=== PATIENT | male | born 1980 | race Caucasian/White ===

== ENCOUNTER 2018-10-13 22:28 | Emergency (ER) | payer OTHER ==
[2018-10-13 22:51] VITALS: RESP 18
--- NOTE | 2018-10-13 23:54 | ED ---
Lower Extremity Injury HPI - General Chief Complaint: Extremity Injury, Lower Stated Complaint: Knee injury Time Seen by Provider: 10/13/18 23:22 Source: patient Mode of arrival: ambulatory Limitations: no limitations - History of Present Illness Initial Comments: Abdomen is a 37-year-old male who presents the ED today for evaluation of left knee swelling. 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 He reports approximately 2 weeks ago he struck his knee on 8 toe hitch of a vehicle, he does state he had some redness and tenderness for a few days without improvement however over the past couple of days he had noticed swelling of his left knee. He describes it as feeling as though the area in front of his knee Is squishy. He denies any significant pain, redness or fevers. Patient states that he contact his primary care physician and was to be evaluated on Wednesday however he became concerned about the degree of swelling psychiatric the ER for evaluation. - Related Data Home Medications Medication Instructions Recorded Confirmed No Known Home Medications 10/13/18 10/13/18 Allergies Allergy/AdvReac Type Severity Reaction Status Date / Time No Known Allergies Allergy Verified 10/13/18 23:37 Review of Systems ROS Statement: Those systems with pertinent positive or pertinent negative responses have been documented in the HPI. ROS Other: All systems not noted in ROS Statement are negative. Past Medical History Past Medical History: No Reported History History of Any Multi-Drug Resistant Organisms: None Reported Past Surgical History: No Surgical Hx Reported Past Psychological History: No Psychological Hx Reported Smoking Status: Current some day smoker Past Alcohol Use History: Occasional Past Drug Use History: Marijuana General Exam - General Exam Comments Initial Comments: Physical Exam GENERAL: Patient is well-developed and well-nourished. Patient is nontoxic and well- hydrated and is in no distress. HENT: Normocephalic, Atraumatic. EYES: PERRL, EOMI PULMONARY: Mild expiratory wheeze CARDIOVASCULAR: There is a regular rate and rhythm without any murmurs gallops or rubs. ABDOMEN: Soft and nontender with normal bowel sounds. SKIN: Skin is clear with no lesions or rashes and otherwise unremarkable. : Deferred NEUROLOGIC: Patient is alert and oriented x3. Moving all extremities spontaneously MUSCULOSKELETAL: Normal extremities with adequate strength and full range of motion. No calf tenderness. Left knee with no erythema or tenderness, full range of motion noted, there is noted to be soft boggy edema anterior to the patellar tendon consistent with prepatellar bursitis PSYCHIATRIC: Normal psychiatric evaluation. Limitations: no limitations Limitations: no limitations Course Vital Signs 10/13/18 10/14/18 22:48 01:30 Temperature 98.5 F 98.1 F Pulse Rate 74 60 Respiratory 18 18 Rate Blood Pressure 130/69 110/70 O2 Sat by Pulse 96 95 Oximetry Medical Decision Making - Medical Decision Making Patient was seen and evaluated history was obtained from the patient, Given the recent trauma and x-ray was ordered X-ray was consistent with prepatellar bursitis, I discussed this with the patient, however he is very uncomfortable with this large fluid collection and is requesting a be drained. Risks and benefits of drainage including the risk of infection and the risk of recurrence were discussed patient he still agreeable to drainage. Prepatellar bursitis aspiration was performed by mid-level provider Cachorro SOLIS. Patient tolerated the procedure well I was present for supervision of the procedure neck sign patient was discharged home in stable condition with referral to orthopedics for reevaluation. Disposition Clinical Impression: Prepatellar bursitis Disposition: HOME SELF-CARE Instructions: Knee Bursitis (ED) Is patient prescribed a controlled substance at d/c from ED?: No Referrals: Briana Snyder MD [Primary Care Provider] - 1-2 days Hernandez Rhodes MD [Medical Doctor] - 1-2 days
--- NOTE | 2018-10-14 00:45 | XR ---
EXAMINATION TYPE: XR knee limited LT DATE OF EXAM: 10/14/2018 COMPARISON: NONE HISTORY: Left knee pain TECHNIQUE: 2 views. FINDINGS: I see no fracture nor dislocation. Joint spaces are normal. There is no sign of a joint effusion. Th ere is significant anterior soft tissue swelling anterior to the patella. IMPRESSION: No fracture seen. Anterior soft tissue swelling consistent with patella bursitis.
[2018-10-14 01:31] VITALS: BP 110/70; PULSE 60; TEMP 98.1
--- NOTE | 2018-10-14 01:33 | ED ---
Disposition Clinical Impression: Prepatellar bursitis Disposition: HOME SELF-CARE Instructions: Knee Bursitis (ED) Is patient prescribed a controlled substance at d/c from ED?: No Referrals: Briana Snyder MD [Primary Care Provider] - 1-2 days Hernandez Rhodes MD [Medical Doctor] - 1-2 days Procedures - Bursa Procedures Consent Obtained: verbal consent Indications: aspiration/injection (aspiration) Side of Body: left Site of Procedure: prepatellar bursa Antisepsis Used: Chlorhexidine Fluid Type: clear (10 ml) Patient Tolerated Procedure: well Complications: none
== END 2018-10-14 01:47 | disposition home or self-care (01) ==
LOC: EC 22:28
DX: M70.42 Prepatellar bursitis, left knee (principal); F17.200 Nicotine dependence, unspecified, uncomplicated
CPT/HCPCS: 20610; 99283

== ENCOUNTER → 2019-02-22 | Outpatient (CLI) | payer OTHER ==
--- NOTE | 2019-02-22 15:46 | CT ---
EXAMINATION TYPE: CT abdomen w con DATE OF EXAM: 02/22/2019 COMPARISON: None. HISTORY: Right sided mid to lower abdominal pain intermittent for years per patient. CT DLP: 281.3 mGycm, Automated Exposure Control for Dose Reduction was Utilized. CONTRAST: CT scan of the abdomen is performed with oral and with IV Contrast, patient injected with 100 mL of I sovue 300. FINDINGS: LUNG BASES: No significant abnormality is appreciated. LIVER/GB: Hepatomegaly is present. Liver is diffusely low dense consistent with fatty infiltration PANCREAS: No significant abnormality is seen. SPLEEN: No significant abnormality is seen. ADRENALS: No significant abnormality is seen. KIDNEYS: Subcentimeter low dense lesion posteriorly mid pole level left kidney is too small to furthe r characterize but presumed benign. There is staghorn type calculus measuring 11 mm long axis lower p ole level right kidney axial image 39 and coronal image 29 which is visualized on localizer image. BOWEL: Oral contrast only reaches distal jejunal loops in the left abdomen. There is no suspicious sm all or large bowel dilatation. Patient has there is little intra-abdominal fat making evaluation slig htly suboptimal. Appendix felt within normal limits from medial aspect of cecum. LYMPH NODES: No greater than 1cm abdominal lymph nodes are appreciated. OSSEOUS STRUCTURES: No significant abnormality is seen. OTHER: No significant additional abnormality is seen. IMPRESSION: Nonobstructing staghorn-type 11 mm calculus lower pole right kidney. Hepatomegaly with fa tty infiltration noted otherwise fairly unremarkable study.
== END | disposition home or self-care (01) ==
LOC: RADCTMAIN 14:26
PROVIDERS: ATTEND Internal Medicine
DX: N20.0 Calculus of kidney (principal)
CPT/HCPCS: 74160; Q9967

== ENCOUNTER → 2019-09-13 | Day surgery (SDC) | payer OTHER ==
[2019-09-11 15:06] VITALS: BMI 21.6
[~2019-09-13] MED LIST: LACTATED RINGERS 1,000 ML IV SCH; LIDOCAINE 1% 20 ML VIAL (10MG/ML) FOR IV START INTRADERMA PRN; LIDOCAINE 1% INJ 10MG/ML (20 ML MDV) ONE; PROPOFOL 10 MG/ML 20 ML VIAL IV ONE
[2019-09-13 11:49] VITALS: TEMP 97.9
--- NOTE | 2019-09-13 12:50 | P.PCN ---
Date of Procedure: 09/13/19 Procedure(s) Performed: Brief history: Patient is a pleasant 38-year-old white male scheduled for an elective upper endoscopy as well as colonoscopy as a part of evaluation of right-sided abdominal pain for the last several months duration. He denies any nausea vomiting, change in bowel habits. Pain happens 2-3 times a week and can last for a couple of days. Has no aggravating or relieving factors. He did have CT of abdomen and pelvis done that was unremarkable other than a small left sided kidney stone. Procedure performed: Esophagogastroduodenoscopy with biopsy Colonoscopy with biopsy Preoperative diagnosis: Right-sided abdominal pain of 6 months duration. [place] [facility] [place]: After informed consent was obtained from the patient was brought into the endoscopy unit and IV sedation was administered by anesthesia under continuous monitoring. Initially upper endoscopy was done. The Olympus GF 160 video endoscope was inserted inserted into the mouth and esophagus intubated without any difficulty and was gradually advanced into the stomach and duodenum and carefully examined. The bulb and second part of the duodenum appeared normal. The scope was then withdrawn into the stomach adequately insufflated with air and upon careful examination the antrum and body, cardia and fundus appeared normal. The scope was then withdrawn into the esophagus. The GE junction was located at 40 cm to the incisors. It appeared regular with no erythema erosions or ulcerations. Rest of the esophagus appeared normal. Patient tolerated the procedure well. At this time the patient continued to remain sedation. Initial digital rectal examination was normal. Olympus CF 160 video colonoscope was then inserted into the rectum and gradually advanced to the cecum without any difficulty. Careful examination was performed as the scope was gradually being withdrawn. The prep was excellent. Terminal ileum was intubated and 20 cm visualized appeared normal. Biopsies were also done from this area. The cecum, ascending colon, transverse colon, descending colon, sigmoid colon and rectum appeared normal. Retroflexion was performed in the rectum and no lesions were noted. Patient tolerated the procedure well. Impression: 1. Upper endoscopy revealed mild diffuse gastritis but no evidence of esophagitis or peptic ulcer disease 2. Colonoscopy was essentially within normal limits with no evidence of colitis or colorectal neoplasia. Normal-appearing terminal ileum. Recommendations: Findings of this examination were discussed with the patient as well as his family. He was advised to follow with the biopsy results. He'll be seen in office in 2-3 weeks.
[2019-09-13 13:29] VITALS: RESP 18
[2019-09-13 13:41] VITALS: BP 150/86; PULSE 56
== END ==
LOC: ORWHC2ENDO 11:08
PROVIDERS: ATTEND Internal Medicine Gastroenterology
DX: K29.70 Gastritis, unspecified, without bleeding (principal); F17.210 Nicotine dependence, cigarettes, uncomplicated
CPT/HCPCS: 88305; 45380; 43239; J2001; J2704

== ENCOUNTER 2020-12-19 13:39 | Emergency (ER) | payer OTHER ==
[2020-12-19 13:45] VITALS: RESP 18
--- NOTE | 2020-12-19 14:10 | ED ---
Abdominal Pain HPI - General Chief Complaint: Abdominal Pain Stated Complaint: Abd pain/vomiting Source: patient Mode of arrival: ambulatory Limitations: no limitations - History of Present Illness Initial Comments: 40-year-old male presented emergency Department with a chief complaint abdominal pain. States the abdominal pain is located in his right lower quadrant and has been well for past 5-6 years. Patient reports seeing a GI specialist and had an upper and lower GI scope performed with no significant findings. Patient also sees his primary care physician with no definitive cause for his pain. Patient reports that his been gradually getting worse and the pain seems to be periodically getting better but then follows by episodes of sharp pain which causes him to be nauseous and vomit. Patient reports she has been vomiting at least once over the past 1-2 weeks. Denies any constipation but does report diarrhea for the past several months. States the pain is not postprandial. Denies any hematuria or melena. he does report occasional hematochezia but states this has been ongoing for quite some time. Denies dysuria, increased urgency or frequency. Denies any obstructive urinary symptoms. Denies any penile discharge, testicular swelling or erythema. - Related Data Home Medications Medication Instructions Recorded Confirmed Omeprazole Magnesium [PriLOSEC OTC] 20 mg PO DAILY PRN 12/19/20 12/19/20 Allergies Allergy/AdvReac Type Severity Reaction Status Date / Time No Known Allergies Allergy Verified 12/19/20 14:30 Review of Systems ROS Statement: Those systems with pertinent positive or pertinent negative responses have been documented in the HPI. ROS Other: All systems not noted in ROS Statement are negative. Past Medical History Past Medical History: GERD/Reflux Additional Past Medical History / Comment(s): rt abdominal pain History of Any Multi-Drug Resistant Organisms: None Reported Past Surgical History: No Surgical Hx Reported Past Anesthesia/Blood Transfusion Reactions: No Reported Reaction Past Psychological History: No Psychological Hx Reported Smoking Status: Current every day smoker Past Alcohol Use History: Daily Past Drug Use History: Marijuana - Past Family History Mother Family Medical History: No Reported History General Exam Limitations: no limitations General appearance: alert, in no apparent distress Head exam: Present: atraumatic, normocephalic, normal inspection Eye exam: Present: normal appearance, PERRL, EOMI Pupils: Present: normal accommodation ENT exam: Present: normal exam, normal oropharynx, mucous membranes moist, TM's normal bilaterally, normal external ear exam Neck exam: Present: normal inspection, full ROM. Absent: tenderness Respiratory exam: Present: normal lung sounds bilaterally. Absent: respiratory distress Cardiovascular Exam: Present: regular rate, normal rhythm, normal heart sounds GI/Abdominal exam: Present: soft, tenderness (mild right lower quadrant tenderness), normal bowel sounds. Absent: distended, guarding, rebound, rigid Extremities exam: Present: normal inspection, full ROM, normal capillary refill. Absent: tenderness Back exam: Present: normal inspection, full ROM. Absent: tenderness, CVA tenderness (R), CVA tenderness (L) Neurological exam: Present: alert, oriented X3, normal gait Psychiatric exam: Present: normal affect, normal mood Skin exam: Present: warm, dry, intact, normal color Course Vital Signs 12/19/20 12/19/20 13:40 16:11 Temperature 97.9 F 98.0 F Pulse Rate 62 68 Respiratory 18 18 Rate Blood Pressure 148/91 133/91 O2 Sat by Pulse 98 98 Oximetry Medical Decision Making - Medical Decision Making 40-year-old male presents to emergency Department with a chief complaint of abdominal pain. On physical examination, patient has mild right lower quadrant tenderness. No CVA tenderness. He did report of intermittent hematochezia. CBC reveals no signs of anemia. CMP is unremarkable. He does have a lactic acid of 2.6. UA shows 17 red blood cells and small amounts of blood. CT of abdomen and pelvis with contrast revealsuncomplicate mild arthritis localized to the terminal ileum. This could represent why the pain is located in the right lower quadrant. This could also explain why the patient continues to have diarrhea. Considering this has been a chronic issue, there is a possibility for an autoimmune condition like ulcerative colitis. the CT also revealed nonobstructive renal calculi.Advised the patient to follow-up with a GI specialist. Patient already has Zofran at home. We'll discharge him with a Tylenol 3 starter pack advised not to drive or operate heavy machinery when taking medication. Strict return parameters were thoroughly discussed the patient was understanding and agreeable. Case discussed with physician. - Lab Data Result diagrams: 12/19/20 14:31 12/19/20 14:31 Lab Results 12/19/20 12/19/20 12/19/20 Range/Units 14:31 14:31 14:31 WBC 4.7 (3.8-10.6) k/uL RBC 4.61 (4.30-5.90) m/uL Hgb 15.5 (13.0-17.5) gm/dL Hct 45.8 (39.0-53.0) % MCV 99.3 (80.0-100.0) fL MCH 33.6 (25.0-35.0) pg MCHC 33.8 (31.0-37.0) g/dL RDW 12.2 (11.5-15.5) % Plt Count 174 (150-450) k/uL MPV 6.8 Neutrophils % 60 % Lymphocytes % 30 % Monocytes % 7 % Eosinophils % 2 % Basophils % 1 % Neutrophils # 2.8 (1.3-7.7) k/uL Lymphocytes # 1.4 (1.0-4.8) k/uL Monocytes # 0.3 (0-1.0) k/uL Eosinophils # 0.1 (0-0.7) k/uL Basophils # 0.1 (0-0.2) k/uL Sodium 143 (137-145) mmol/L Potassium 4.3 (3.5-5.1) mmol/L Chloride 105 (98-107) mmol/L Carbon Dioxide 26 (22-30) mmol/L Anion Gap 12 mmol/L BUN 12 (9-20) mg/dL Creatinine 0.78 (0.66-1.25) mg/dL Est GFR (CKD-EPI)AfAm >90 (>60 ml/min/1.73 sqM) Est GFR (CKD-EPI)NonAf >90 (>60 ml/min/1.73 sqM) Glucose 80 (74-99) mg/dL Lactic Ac Sepsis Rflx Plasma Lactic Acid Iban 2.6 H* (0.7-2.0) mmol/L Calcium 9.0 (8.4-10.2) mg/dL Total Bilirubin 1.0 (0.2-1.3) mg/dL AST 113 H (17-59) U/L ALT 41 (4-49) U/L Alkaline Phosphatase 97 (38-126) U/L Total Protein 8.3 H (6.3-8.2) g/dL Albumin 4.3 (3.5-5.0) g/dL Lipase 160 (23-300) U/L Urine Color Urine Appearance (Clear) Urine pH (5.0-8.0) Ur Specific [place] (1.001-1.035) Urine Protein (Negative) Urine Glucose (UA) (Negative) Urine Ketones (Negative) Urine Blood (Negative) Urine Nitrite (Negative) Urine Bilirubin (Negative) Urine Urobilinogen (<2.0) mg/dL Ur Leukocyte Esterase (Negative) Urine RBC (0-5) /hpf Urine WBC (0-5) /hpf Ur Squamous Epith Cells (0-4) /hpf Urine Mucus (None) /hpf 12/19/20 12/19/20 Range/Units 15:02 15:15 WBC (3.8-10.6) k/uL RBC (4.30-5.90) m/uL Hgb (13.0-17.5) gm/dL Hct (39.0-53.0) % MCV (80.0-100.0) fL MCH (25.0-35.0) pg MCHC (31.0-37.0) g/dL RDW (11.5-15.5) % Plt Count (150-450) k/uL MPV Neutrophils % % Lymphocytes % % Monocytes % % Eosinophils % % Basophils % % Neutrophils # (1.3-7.7) k/uL Lymphocytes # (1.0-4.8) k/uL Monocytes # (0-1.0) k/uL Eosinophils # (0-0.7) k/uL Basophils # (0-0.2) k/uL Sodium (137-145) mmol/L Potassium (3.5-5.1) mmol/L Chloride (98-107) mmol/L Carbon Dioxide (22-30) mmol/L Anion Gap mmol/L BUN (9-20) mg/dL Creatinine (0.66-1.25) mg/dL Est GFR (CKD-EPI)AfAm (>60 ml/min/1.73 sqM) Est GFR (CKD-EPI)NonAf (>60 ml/min/1.73 sqM) Glucose (74-99) mg/dL Lactic Ac Sepsis Rflx Y Plasma Lactic Acid Iban (0.7-2.0) mmol/L Calcium (8.4-10.2) mg/dL Total Bilirubin (0.2-1.3) mg/dL AST (17-59) U/L ALT (4-49) U/L Alkaline Phosphatase (38-126) U/L Total Protein (6.3-8.2) g/dL Albumin (3.5-5.0) g/dL Lipase (23-300) U/L Urine Color Yellow Urine Appearance Clear (Clear) Urine pH 6.0 (5.0-8.0) Ur Specific [place] 1.023 (1.001-1.035) Urine Protein Trace H (Negative) Urine Glucose (UA) Negative (Negative) Urine Ketones Negative (Negative) Urine Blood Small H (Negative) Urine Nitrite Negative (Negative) Urine Bilirubin Negative (Negative) Urine Urobilinogen <2.0 (<2.0) mg/dL Ur Leukocyte Esterase Negative (Negative) Urine RBC 17 H (0-5) /hpf Urine WBC 2 (0-5) /hpf Ur Squamous Epith Cells <1 (0-4) /hpf Urine Mucus Few H (None) /hpf - EKG Data EKG Comments: sinus rhythm . No STelevation or depression. Peak T waves are also noted on his old EKG 12/04/19 Ventricular rate 70, ID 120, QRS 86, QTC 412. Disposition Clinical Impression: Abdominal pain, Enteritis, Diarrhea Disposition: HOME SELF-CARE Condition: Stable Instructions (If sedation given, give patient instructions): Enteritis (ED) Additional Instructions: Follow-up with a GI specialist. Return to emergency department if symptoms worsen. Is patient prescribed a controlled substance at d/c from ED?: No Referrals: Briana Snyder MD [Primary Care Provider] - 1-2 days Time of Disposition: 15:48
[2020-12-19] MEDS ORDERED: KETOROLAC 15 MG/ML 1 ML VIAL IVP STA (14:23)
[2020-12-19] MEDS ORDERED: SODIUM CHLORIDE 0.9% 1,000 ML IV STA (14:23)
[2020-12-19] MEDS ORDERED: FAMOTIDINE 20 MG/2 ML VIAL IV STA (14:23)
[2020-12-19 14:51] LABS: Basophils # (A) 0.1 k/uL (0-0.2); Basophils % (A) 1 %; Eosinophils # (A) 0.1 k/uL (0-0.7); Eosinophils % (A) 2 %; HCT 45.8 % (39.0-53.0); HGB 15.5 gm/dL (13.0-17.5); Lymphocytes # (A) 1.4 k/uL (1.0-4.8); Lymphocytes % (A) 30 %; MCH 33.6 pg (25.0-35.0); MCHC 33.8 g/dL (31.0-37.0); MCV 99.3 fL (80.0-100.0); Mean Platelet Volume 6.8; Monocytes # (A) 0.3 k/uL (0-1.0); Monocytes % (A) 7 %; Neutrophils # (A) 2.8 k/uL (1.3-7.7); Neutrophils % (A) 60 %; Platelet Count 174 k/uL (150-450); RBC 4.61 m/uL (4.30-5.90); RDW 12.2 % (11.5-15.5); WBC 4.7 k/uL (3.8-10.6)
[2020-12-19 15:07] LABS: ALT 41 U/L (4-49); AST 113 U/L (17-59); African American GFR (CKD) >90 (>60 ml/min/1.73 sqM); Albumin 4.3 g/dL (3.5-5.0); Alkaline Phosphatase 97 U/L (38-126); Anion Gap 12 mmol/L; Blood Urea Nitrogen 12 mg/dL (9-20); Carbon Dioxide 26 mmol/L (22-30); Chloride 105 mmol/L (98-107); Glucose 80 mg/dL (74-99); Lipase 160 U/L (23-300); Non-African American GFR(CKD) >90 (>60 ml/min/1.73 sqM); Potassium 4.3 mmol/L (3.5-5.1); Sodium 143 mmol/L (137-145); Total Protein 8.3 g/dL (6.3-8.2)
--- NOTE | 2020-12-19 15:10 | CT ---
EXAMINATION TYPE: CT abdomen pelvis w con DATE OF EXAM: 12/19/2020 COMPARISON: CT abdomen and pelvis November 23, 2019 HISTORY: Stomach pains CT DLP: 524.2 mGycm, Automated Exposure Control for Dose Reduction was Utilized. CONTRAST: CT scan of the abdomen and pelvis is performed without oral but with IV Contrast, patient injected wi th 100 mL of Isovue 300. FINDINGS: LUNG BASES: No significant abnormality is appreciated. LIVER/GB: Mild hepatomegaly redemonstrated. Liver remains heterogeneously hypodense consistent with d iffuse fatty infiltration. Gallbladder has contracted margins on current study without surrounding in flammatory change. PANCREAS: No significant abnormality is seen. SPLEEN: No significant abnormality is seen. ADRENALS: No significant abnormality is seen. KIDNEYS: Stable subcentimeter thin-walled cyst in the posterior mid left kidney image 26. More promin ent 5 mm nonobstructing calculus right kidney midpole level posteriorly axial image 34. Stable larger 11 to 12 mm calculus anteriorly right kidney axial image 39. Symmetric cortical medullary uptake and excretion without hydronephrosis seen bilaterally. Stable small left pelvic phlebolith on axial imag e 76. BOWEL: Suboptimal evaluation of bowel without enteric contrast. No suspicious small or large bowel di latation. Stomach poorly distended and thus suboptimally evaluated. Terminal ileum shows mild to mode rate wall thickening and mild mucosal enhancement. PROSTATE/SEMINAL VESICLES: No gross abnormality seen. LYMPH NODES: No greater than 1cm abdominal or pelvic lymph nodes are appreciated. OSSEOUS STRUCTURES: No significant abnormality is seen. OTHER: No significant additional abnormality is seen. IMPRESSION: Possible uncomplicated mild enteritis focused at level of terminal ileum, correlate clini merissa. Otherwise no acute findings are evident. Hepatomegaly and fatty infiltration of liver redemons trated. Nonobstructing right renal calculi redemonstrated.
[2020-12-19 15:17] LABS: Appearance,Urine Clear (Clear); Bilirubin,Urine Negative (Negative); Blood,Urine Small (Negative); Color,Urine Yellow; Glucose,Urine (UA) Negative (Negative); Ketones,Urine Negative (Negative); Leukocyte Esterase,Urine Negative (Negative); Mucus,Urine Few /hpf; Nitrite,Urine Negative (Negative); Protein,Urine Trace (Negative); RBC,Urine 17 /hpf (0-5); Specific Gravity,Urine 1.023 (1.001-1.035); Squamous Epithelial Cell,Urine <1 /hpf (0-4); Urobilinogen,Urine <2.0 mg/dL (<2.0); WBC,Urine 2 /hpf (0-5)
[2020-12-19] MEDS ORDERED: ACET/COD 300 MG/30 MG STARTER PACK 6 TAB BTL PO STA (15:58)
[2020-12-19 16:12] VITALS: BP 133/91; PULSE 68; TEMP 98
== END 2020-12-19 16:12 | disposition home or self-care (01) ==
LOC: EC 13:39
DX: K52.9 Noninfective gastroenteritis and colitis, unspecified (principal); K21.9 Gastro-esophageal reflux disease without esophagitis; F17.200 Nicotine dependence, unspecified, uncomplicated
CPT/HCPCS: 36415; 93005; 80053; 83605; 83690; 85025; 81001; 74177; 99284; 96374; 96375; 96361 ×2; J1885; Q9967

== ENCOUNTER 2021-08-18 13:23 | Emergency (ER) | payer OTHER ==
[2021-08-18 14:51] VITALS: RESP 18; TEMP 98.1
--- NOTE | 2021-08-18 17:12 | XR ---
EXAMINATION TYPE: XR chest 2V DATE OF EXAM: 08/18/2021 COMPARISON: NONE HISTORY: Cough. Fever. TECHNIQUE: Frontal and lateral views of the chest are obtained. FINDINGS: The cardiomediastinal silhouette and pulmonary vasculature are within normal limits. Patch y airspace opacity in the right suprahilar region. No effusion or pneumothorax. IMPRESSION: Patchy airspace opacity in the right suprahilar region could relate to pneumonia in the a ppropriate clinical setting.
[2021-08-18] MEDS ORDERED: IPRATROPIUM-ALBUTEROL 3 ML NEB INHALATION STA (17:21)
--- NOTE | 2021-08-18 17:23 | ED ---
Fever HPI - General Chief Complaint: Fever Stated Complaint: Fever Time Seen by Provider: 08/18/21 16:18 Source: patient Mode of arrival: ambulatory Limitations: no limitations - History of Present Illness Initial Comments: 40-year-old female presents emergency Department with reported fevers, cough and abnormal taste. He has had the symptoms for the past 2 days. Reports that he has been in contact with a small child that tested positive for RSV. Denies cold exposure. Patient is not Covid vaccinated. Admits to a history of asthma when he was younger however states he outgrew it. Patient has no current medical problems or takes any medication. He denies any chest pain. No nausea, vomiting or diarrhea. He has been taking Tylenol for fever control. No other alleviating, or modifying factors - Related Data Home Medications Medication Instructions Recorded Confirmed Omeprazole Magnesium [PriLOSEC OTC] 20 mg PO DAILY PRN 12/19/20 12/19/20 Previous Rx's Medication Instructions Recorded Doxycycline Monohydrate [Monodox] 100 mg PO Q12HR #20 cap 08/18/21 Allergies Allergy/AdvReac Type Severity Reaction Status Date / Time No Known Allergies Allergy Verified 08/18/21 14:51 Review of Systems ROS Statement: Those systems with pertinent positive or pertinent negative responses have been documented in the HPI. ROS Other: All systems not noted in ROS Statement are negative. Past Medical History Past Medical History: GERD/Reflux Additional Past Medical History / Comment(s): rt abdominal pain History of Any Multi-Drug Resistant Organisms: None Reported Past Surgical History: No Surgical Hx Reported Past Anesthesia/Blood Transfusion Reactions: No Reported Reaction Past Psychological History: No Psychological Hx Reported Smoking Status: Current every day smoker Past Alcohol Use History: Daily Past Drug Use History: Marijuana - Past Family History Mother Family Medical History: No Reported History General Exam Limitations: no limitations General appearance: alert, in no apparent distress Head exam: Present: atraumatic, normocephalic, normal inspection Eye exam: Present: normal appearance, PERRL, EOMI. Absent: scleral icterus, conjunctival injection, periorbital swelling ENT exam: Present: normal exam, mucous membranes moist Neck exam: Present: normal inspection. Absent: tenderness, meningismus, lymphadenopathy Respiratory exam: Present: normal lung sounds bilaterally. Absent: respiratory distress, wheezes, rales, rhonchi, stridor Cardiovascular Exam: Present: regular rate, normal rhythm, normal heart sounds. Absent: systolic murmur, diastolic murmur, rubs, gallop, clicks GI/Abdominal exam: Present: soft, normal bowel sounds. Absent: distended, tenderness, guarding, rebound, rigid Extremities exam: Present: normal inspection, full ROM, normal capillary refill. Absent: tenderness, pedal edema, joint swelling, calf tenderness Back exam: Present: normal inspection Neurological exam: Present: alert, oriented X3, CN II-XII intact Psychiatric exam: Present: normal affect, normal mood Skin exam: Present: warm, dry, intact, normal color. Absent: rash Course Vital Signs 08/18/21 08/18/21 14:48 17:57 Temperature 98.1 F Pulse Rate 78 74 Respiratory 18 18 Rate Blood Pressure 120/82 117/73 O2 Sat by Pulse 98 99 Oximetry Medical Decision Making - Medical Decision Making Upon arrival patient was placed into room 29. There are history and physical exam was performed. Patient is swabbed for Covid. Chest x-rays performed. Chest x-ray demonstrates patchy airspace opacity in the right suprahilar region which could relate to pneumonia in the appropriate clinical setting. Covid is not detected. I did discuss the diagnosis, differential treatment options. Patient is wheezy on physical exam and I did recommend a breathing treatment however the patient refused. He states he has a nebulizer at home with enough albuterol and does not need a prescription for this. I did inform him that I will have to start him on antibiotics for his abnormal chest x-ray. He is given a dose of Augmentin the emergency department will be discharged home on doxycycline. Patient agreed to the treatment plan. Asked to follow up with his primary care doctor in 2-4 days. He is to return for any new or worsening symptoms per patient was discharged home in stable condition - Lab Data Lab Results 08/18/21 Range/Units 16:44 Coronavirus (PCR) Not Detected (Not Detectd) Disposition Clinical Impression: Fever, CAP (community acquired pneumonia) Disposition: HOME SELF-CARE Condition: Stable Instructions (If sedation given, give patient instructions): Bacterial Pneumonia (ED) Additional Instructions: Take the antibiotics as directed. Use your nebulizer every 6 hours. Return to the emergency department for any new or worsening symptoms. Follow up with your doctor in 2-4 days. Prescriptions: Doxycycline Monohydrate [Monodox] 100 mg PO Q12HR #20 cap Is patient prescribed a controlled substance at d/c from ED?: No Referrals: Briana Snyder MD [Primary Care Provider] - 1-2 days Time of Disposition: 17:33
[2021-08-18] MEDS ORDERED: AMOXIC-POT CLAV 875-125MG 1 EACH TAB PO STA (17:24)
[2021-08-18 17:58] VITALS: BP 117/73; PULSE 74
== END 2021-08-18 17:58 | disposition home or self-care (01) ==
LOC: EC 13:23
DX: J18.9 Pneumonia, unspecified organism (principal); J45.909 Unspecified asthma, uncomplicated; F17.200 Nicotine dependence, unspecified, uncomplicated; Z20.822 Contact with and (suspected) exposure to COVID-19
CPT/HCPCS: 71046; 87635; 99283

== ENCOUNTER 2023-03-15 14:59 | Inpatient (IN) | payer OTHER ==
[2023-03-15] MEDS ORDERED: SODIUM CHLORIDE 0.9% 1,000 ML IV STA (15:17)
[2023-03-15] MEDS ORDERED: THIAMINE 100 MG/ML 2 ML VIAL IM STA (15:18)
[2023-03-15] MEDS ORDERED: LORazepam 2 MG/ML INJ IV PRN ×3 (15:18→19:13)
--- NOTE | 2023-03-15 15:44 | ED ---
Alcohol HPI - General Chief Complaint: Alcohol Stated Complaint: DETOX/MENTAL HEALTH Time Seen by Provider: 03/15/23 15:17 Source: patient, police, RN notes reviewed Mode of arrival: ambulatory Limitations: no limitations - History of Present Illness Initial Comments: This is a 42-year-old male who presents to the emergency department for alcohol withdrawals. Patient presents with [facility], where he is currently an inmate. States that he last had 2 pints of whiskey 7 days ago and he typically drinks 1.5-2 pints daily. He has been on Valium for 7 days to manage these withdrawals, which he is receiving in long term. The police commanding officer states that he has been experiencing auditory and visual hallucinations according to the medical staff. Patient reports having bizarre and vivid dreams. Also states that he feels very shaky. Denies any history of withdrawal seizures. He last went through alcohol withdrawals several years ago, but states that they were not as severe. Denies any nausea, vomiting, headaches, or pain. Patient is actively hallucinating in the examination room. He is asking people to take SpaghettiOs from his hands. Denies any fevers, chills, sore throat, cough, dyspnea, chest pain, palpitations, abdominal pain, nausea, vomiting, diarrhea, back pain, or headaches. MD Complaint: alcohol withdrawal Time Since Last Drink: 10 -: days(s) - Related Data Home Medications Medication Instructions Recorded Confirmed Multivit/Iron Sulf/Folic Acid 1 tab PO DAILY 03/15/23 03/15/23 [Multivitamin with Iron] Promethazine [Phenergan] 25 mg PO TID PRN 03/15/23 03/15/23 Thiamine [Vitamin B-1] 100 mg PO DAILY 03/15/23 03/15/23 Allergies Allergy/AdvReac Type Severity Reaction Status Date / Time No Known Allergies Allergy Verified 03/15/23 16:55 Review of Systems ROS Statement: Those systems with pertinent positive or pertinent negative responses have been documented in the HPI. ROS Other: All systems not noted in ROS Statement are negative. Past Medical History Past Medical History: GERD/Reflux Additional Past Medical History / Comment(s): rt abdominal pain History of Any Multi-Drug Resistant Organisms: None Reported Past Surgical History: No Surgical Hx Reported Past Anesthesia/Blood Transfusion Reactions: No Reported Reaction Past Psychological History: No Psychological Hx Reported Smoking Status: Current every day smoker Past Alcohol Use History: Abuse, Daily, Heavy Past Drug Use History: Marijuana - Past Family History Mother Family Medical History: No Reported History General Exam Limitations: no limitations General appearance: alert Head exam: Present: atraumatic, normocephalic, normal inspection Respiratory exam: Present: normal lung sounds bilaterally. Absent: respiratory distress, wheezes, rales, rhonchi, stridor Cardiovascular Exam: Present: regular rate, normal rhythm, normal heart sounds. Absent: systolic murmur, diastolic murmur, rubs, gallop, clicks GI/Abdominal exam: Present: soft, normal bowel sounds. Absent: distended, tenderness, guarding, rebound, rigid Neurological exam: Present: alert, CN II-XII intact, other (Tremors in the bilateral upper extremities) Psychiatric exam: Present: other (Auditory and visual hallucinations). Absent: homicidal ideation, suicidal ideation Expanded Focused psych exam: Present: psychomotor agitation, delusional, restlessness Skin exam: Present: warm, dry, intact, normal color. Absent: rash Course Vital Signs 03/15/23 03/15/23 15:05 20:30 Temperature 98.1 F Pulse Rate 75 124 H Respiratory 16 16 Rate Blood Pressure 113/75 133/66 O2 Sat by Pulse 98 98 Oximetry Medical Decision Making - Medical Decision Making This is a 42-year-old male who presents to the emergency department for alcohol withdrawals. Was pt. sent in by a medical professional or institution? @ -No Did you speak to anyone other than the patient for history? @ -senior compliance officer Did you review nursing and triage notes? @ -Yes, and I agree, it is accurate with regards to the patient's symptoms. Were old charts reviewed? @ -No Differential Diagnosis? @ -Differential Alcohol Withdrawals: Sympathomimetic syndrome, anti-muscarinic syndrome, serotonin syndrome, neuroleptic malignant syndrome, thyrotoxicosis, encephalitis, acute psychosis, hypoglycemia, trauma, sepsis. This is not meant to be an all-inclusive list. What testing was considered but not performed? (CT, X-rays, U/S, labs)? Why? @ -None What meds were considered but not given? Why? @ -None Did you discuss the management of the patient with other professionals? @ -Yes, Marisa Gaytan with [facility] who accepts the patient for admission. I also spoke with Raheem Peterson, who accepts the patient for ICU admission Did you reconcile home meds? @ -No Was smoking cessation discussed for >3mins.? @ -No Was critical care preformed (if so, how long)? @ -No Were there social determinants of health that impacted care today? How? (Homelessness, low income, unemployed, alcoholism, drug addiction, transportati on, low edu. Level, literacy, decrease access to med. care, long term, rehab)? @ -No Was there de-escalation of care discussed even if they declined? (Discuss DNR or withdrawal of care, Hospice)? @ -No What co-morbidities impacted this encounter? (DM, HTN, Smoking, COPD, CAD, Cancer, CVA, Hep., AIDS, mental health diagnosis, sleep apnea, morbid obesity)? @ -Alcohol abuse Was patient admitted / discharged? @ -Admitted. Lab work obtained revealing mild leukocytosis and elevated liver enzymes. Elevated liver enzymes are consistent with patient's history of alcohol abuse. They are elevated more so than they have been in the past. CIWA protocol with Ativan was initiated on arrival. When the patient first arrived, he was alert and oriented 4 and had only minor shaking. However, over the course of 5-6 hours, he developed prominent auditory and visual hallucinations that seemed to increase in severity and intensity. He was also pacing in the room with severe shaking. He was only following a few commands and would not sit still. He also had marked confusion with regards to the time of year, month, and where he is currently. After the Ativan withdrawal protocol was not adequately controlling his symptoms, we added Librium 25 mg 4 times a day. He continued to be markedly symptomatic, and he was subsequently started on the phenobarbital protocol as well. Patient ended up having a CIWA score of 33 after 10 mg of Ativan, 120 mg of phenobarbital, and 25 mg of Librium. Given his elevated CIWA score with lack of improvement on multiple doses of medications, patient will be admitted to the ICU. Undiagnosed new problem with uncertain prognosis? @ -None Drug Therapy requiring intensive monitoring for toxicity (Heparin, Nitro, Insulin, Cardizem)? @ -None Were any procedures done? @ -None Diagnosis/symptom? @ -Alcohol withdrawal delirium/DTs Acute, or Chronic, or Acute on Chronic? @ -Acute Uncomplicated (without systemic symptoms) or Complicated (systemic symptoms)? @ -Complicated Side effects of treatment? @ -None Exacerbation, Progression, or Severe Exacerbation] @ -Not applicable Poses a threat to life or bodily function? @ -Yes This case was discussed in detail with the attending ED physician, Dr. Swain. Presentation, findings, and treatment plan discussed in detail as well. - Lab Data Result diagrams: 03/15/23 15:22 03/15/23 15: Lab Results 03/15/23 03/15/23 03/15/23 Range/Units 15:22 15: 15: WBC 11.7 H (3.8-10.6) k/uL RBC 3.53 L (4.30-5.90) m/uL Hgb 11.9 L (13.0-17.5) gm/dL Hct 35.7 L (39.0-53.0) % MCV 101.2 H (80.0-100.0) fL MCH 33.6 (25.0-35.0) pg MCHC 33.3 (31.0-37.0) g/dL RDW 12.3 (11.5-15.5) % Plt Count 215 (150-450) k/uL MPV 7.6 Neutrophils % 75 % Lymphocytes % 14 % Monocytes % 8 % Eosinophils % 2 % Basophils % 0 % Neutrophils # 8.7 H (1.3-7.7) k/uL Lymphocytes # 1.6 (1.0-4.8) k/uL Monocytes # 0.9 (0-1.0) k/uL Eosinophils # 0.2 (0-0.7) k/uL Basophils # 0.0 (0-0.2) k/uL PT 11.6 (9.0-12.0) sec INR 1.1 (<1.2) Sodium 138 (137-145) mmol/L Potassium 4.3 (3.5-5.1) mmol/L Chloride 101 (98-107) mmol/L Carbon Dioxide 24 (22-30) mmol/L Anion Gap 13 mmol/L BUN 21 H (9-20) mg/dL Creatinine 0.59 L (0.66-1.25) mg/dL Est GFR (CKD-EPI)AfAm >90 (>60 ml/min/1.73 sqM) Est GFR (CKD-EPI)NonAf >90 (>60 ml/min/1.73 sqM) Glucose 69 L (74-99) mg/dL Calcium 9.5 (8.4-10.2) mg/dL Phosphorus 4.9 H (2.5-4.5) mg/dL Magnesium 1.8 (1.6-2.3) mg/dL Total Bilirubin 0.9 (0.2-1.3) mg/dL AST 329 H (17-59) U/L ALT 233 H (4-49) U/L Alkaline Phosphatase 110 (38-126) U/L Total Protein 7.9 (6.3-8.2) g/dL Albumin 4.2 (3.5-5.0) g/dL Amylase 68 (30-110) U/L Lipase 599 H (23-300) U/L Serum Alcohol <10 mg/dL Disposition Clinical Impression: Alcohol withdrawal delirium Disposition: ADMITTED IP TO THIS HOSP
[2023-03-15] MEDS: LORazepam 2 MG/ML INJ IV PRN ×4 (15:50→18:44)
[2023-03-15 15:54] LABS: Basophils % (A) 0 %; Eosinophils # (A) 0.2 k/uL (0-0.7); Eosinophils % (A) 2 %; HCT 35.7 % (39.0-53.0); HGB 11.9 gm/dL (13.0-17.5); Lymphocytes # (A) 1.6 k/uL (1.0-4.8); Lymphocytes % (A) 14 %; MCH 33.6 pg (25.0-35.0); MCHC 33.3 g/dL (31.0-37.0); MCV 101.2 fL (80.0-100.0); Mean Platelet Volume 7.6; Monocytes # (A) 0.9 k/uL (0-1.0); Monocytes % (A) 8 %; Neutrophils # (A) 8.7 k/uL (1.3-7.7); Neutrophils % (A) 75 %; Platelet Count 215 k/uL (150-450); RBC 3.53 m/uL (4.30-5.90); RDW 12.3 % (11.5-15.5); WBC 11.7 k/uL (3.8-10.6)
[2023-03-15 16:02] LABS: INR 1.1 (<1.2); Prothrombin Time 11.6 sec (9.0-12.0)
[2023-03-15 16:10] LABS: ALT 233 U/L (4-49); AST 329 U/L (17-59); African American GFR (CKD) >90 (>60 ml/min/1.73 sqM); Albumin 4.2 g/dL (3.5-5.0); Alcohol <10 mg/dL; Alkaline Phosphatase 110 U/L (38-126); Amylase 68 U/L (30-110); Anion Gap 13 mmol/L; Blood Urea Nitrogen 21 mg/dL (9-20); Calcium 9.5 mg/dL (8.4-10.2); Carbon Dioxide 24 mmol/L (22-30); Chloride 101 mmol/L (98-107); Glucose 69 mg/dL (74-99); Lipase 599 U/L (23-300); Magnesium 1.8 mg/dL (1.6-2.3); Non-African American GFR(CKD) >90 (>60 ml/min/1.73 sqM); Phosphorus 4.9 mg/dL (2.5-4.5); Potassium 4.3 mmol/L (3.5-5.1); Sodium 138 mmol/L (137-145); Total Bilirubin 0.9 mg/dL (0.2-1.3); Total Protein 7.9 g/dL (6.3-8.2)
[2023-03-15] MEDS: chlordiazePOXIDE 25 MG CAP PO SCH ×2 (18:06→22:05)
[2023-03-15] MEDS ORDERED: PHENobarbital SODIUM 130 MG/ML 1 ML VIAL IM STA (19:28)
[2023-03-15] MEDS ORDERED: LORazepam 2 MG/ML INJ IV STA (20:43)
[2023-03-15] MEDS ORDERED: NALOXONE 0.4 MG/ML 1 ML VIAL IV PRN (21:42)
[2023-03-15 22:47] LABS: Glucose,Whole Blood 78 mg/dL (70-110)
[2023-03-15 23:44] LABS: Glucose,Whole Blood 75 mg/dL (70-110)
[2023-03-16 00:10] LABS: Basophils % (A) 0 %; Eosinophils # (A) 0.2 k/uL (0-0.7); Eosinophils % (A) 2 %; HCT 34.5 % (39.0-53.0); HGB 11.3 gm/dL (13.0-17.5); Lymphocytes # (A) 1.3 k/uL (1.0-4.8); Lymphocytes % (A) 10 %; MCH 33.8 pg (25.0-35.0); MCHC 32.8 g/dL (31.0-37.0); MCV 103.1 fL (80.0-100.0); Macrocytosis Slight; Mean Platelet Volume 7.4; Monocytes # (A) 0.9 k/uL (0-1.0); Monocytes % (A) 7 %; Neutrophils # (A) 10.3 k/uL (1.3-7.7); Neutrophils % (A) 80 %; Platelet Count 217 k/uL (150-450); RBC 3.34 m/uL (4.30-5.90); RDW 12.3 % (11.5-15.5); WBC 12.9 k/uL (3.8-10.6)
[2023-03-16 00:24] LABS: African American GFR (CKD) >90 (>60 ml/min/1.73 sqM); Anion Gap 12 mmol/L; Blood Urea Nitrogen 15 mg/dL (9-20); Calcium 8.8 mg/dL (8.4-10.2); Carbon Dioxide 23 mmol/L (22-30); Chloride 102 mmol/L (98-107); Glucose 66 mg/dL (74-99); Magnesium 1.8 mg/dL (1.6-2.3); Non-African American GFR(CKD) >90 (>60 ml/min/1.73 sqM); Potassium 3.6 mmol/L (3.5-5.1); Sodium 137 mmol/L (137-145)
[2023-03-16] MEDS: HALOPERIDOL LACTATE 5 MG/ML 1 ML VIAL IVP PRN ×2 (00:50→14:29)
[2023-03-16 00:57] LABS: Glucose,Whole Blood 71 mg/dL (70-110)
[2023-03-16] MEDS ORDERED: DEXTROSE 50% SYRINGE 50 ML IVP PRN ×2 (01:03)
--- NOTE | 2023-03-16 01:07 | P.CNPUL ---
History of Present Illness Consult date: 03/16/23 Requesting physician: Connie Cantu Reason for consult: other (ICU management) Chief complaint: Alcohol withdrawal History of present illness: I'm seeing this patient in new consultation today 03/16/2023 in the intensive care unit for acute alcohol withdrawal. This is a 42-year-old white male with significant medical history of alcohol abuse. He is a poor historian but reports drinking at least one fifth of alcohol per day. Patient has been an inmate at the [facility] since March 10. This is reportedly his last drink. Patient was noted to start having hallucinations, tremors. He was receiving [facility] in [facility], but his symptoms have progressively worsened. He was subsequently transferred to [facility] this afternoon. No reported history of alcohol withdrawal seizures. No reported head trauma. While in the emergency room, the patient reportedly became increasingly agitated and was treated with a total of 10 mg of Ativan, L ibrium, and phenobarbital. Despite this treatment, the patient's CIWA score was still greater than 30. Patient was admitted to the intensive care unit for closer monitoring. Brain CT without contrast was ordered, but on hold, due to the patient being too agitated for the examination. Currently, the patient is laying in the bed, on room air, in no acute distress. He is shackled to the bed, and a police officers at the bedside. He is still quite disoriented. CIWA on my evaluation is 12. Most recent CBC showed some minimal leukocytosis with a WBC count of 13, hemoglobin 11.3, hematocrit 34.5, platelets 217,000. BMP was essentially unremarkable. Glucose was low at 66. LFTs are elevated with an AST of 329, ALT of 233. Lipase was also minimally elevated at 599. Serum alcohol level was less than 10 on arrival. Patient is currently on the CIWA protocol. Seizure precautions in place. Receiving Vitamin B 1 replacement. Vital signs are stable. Review of Systems CONSTITUTIONAL: Denies any recent significant weight loss or weight gain. EYES: Denies change in vision. EARS, NOSE, MOUTH, THROAT: Denies headaches, denies sore throat. CARDIOVASCULAR: Denies chest pain, palpitations or syncopal episodes. RESPIRATORY: Denies shortness of breath, cough, congestion or hemoptysis. GASTROINTESTINAL: Denies change in appetite, abdominal pain, nausea and vomiting, or diarrhea GENITOURINARY: Denies hematuria, denies infections. MUSKULOSKELETAL: Denies pain, denies swelling. INTEGUMENTARY: Denies rash, denies eczema. NEUROLOGICAL: Denies recent memory loss, no recent seizure activity. PSYCHIATRIC: Denies anxiety, denies depression. HEMATOLOGIC/LYMPHATIC: Denies anemia, denies enlarged lymph node Past Medical History Past Medical History: GERD/Reflux Additional Past Medical History / Comment(s): rt abdominal pain History of Any Multi-Drug Resistant Organisms: None Reported Past Surgical History: No Surgical Hx Reported Past Anesthesia/Blood Transfusion Reactions: No Reported Reaction Past Psychological History: No Psychological Hx Reported Smoking Status: Current every day smoker Past Alcohol Use History: Abuse, Daily, Heavy Past Drug Use History: Marijuana - Past Family History Mother Family Medical History: No Reported History Medications and Allergies Home Medications Medication Instructions Recorded Confirmed Type Multivit/Iron Sulf/Folic Acid 1 tab PO DAILY 03/15/23 03/15/23 History [Multivitamin with Iron] Promethazine [Phenergan] 25 mg PO TID PRN 03/15/23 03/15/23 History Thiamine [Vitamin B-1] 100 mg PO DAILY 03/15/23 03/15/23 History Allergies Allergy/AdvReac Type Severity Reaction Status Date / Time No Known Allergies Allergy Verified 03/15/23 16:55 Physical Exam Vitals: Vital Signs Temp Pulse Resp BP Pulse Ox 03/16/23 00:10 73 15 114/77 95 03/16/23 00:00 98.2 F 68 14 113/78 94 L 03/15/23 23:50 70 14 113/78 95 03/15/23 23:40 60 13 113/78 94 L 03/15/23 23:30 72 14 113/78 94 L 03/15/23 23:20 73 14 113/78 94 L 03/15/23 23:10 72 14 113/78 93 L 03/15/23 23:00 98.4 F 61 15 148/89 95 03/15/23 22:50 89 14 93 L 03/15/23 22:47 79 15 03/15/23 22:40 105 H 16 124/82 97 03/15/23 20:30 124 H 16 133/66 98 03/15/23 15:05 98.1 F 75 16 113/75 98 Intake and Output 03/15/23 03/15/23 03/16/23 14:59 22:59 06:59 Output Total 0 Balance 0 Output: Urine 0 Other: Voiding Method Diaper Weight 56.699 kg GENERAL EXAM: Disoriented and restless, 42-year-old white male, shackled to the bed HEAD: Normocephalic and atraumatic EYES: Normal reaction of pupils, equal size. NOSE: Clear with pink turbinates. THROAT: No erythema or exudates. NECK: No masses, no JVD. CHEST: No chest wall deformity. LUNGS: Equal air entry with no crackles, wheeze, rhonchi or dullness. On room air. No conversational dyspnea or accessory muscle use.. CVS: S1 and S2 normal with no audible murmur, regular rhythm. No extra heart sounds ABDOMEN: Abdomen is flat without obvious masses, active bowel sounds, no gu arding or rigidity. There is some minimal hepatomegaly on deep palpation, SPINE: No scoliosis or deformity SKIN: No rashes CENTRAL NERVOUS SYSTEM: No focal deficits, tone is normal in all 4 extremities. There are some moderate tremors with arm extension. EXTREMITIES: There is no peripheral edema, clubbing, or cyanosis. Peripheral pulses are intact. Results - Laboratory Findings CBC and BMP: 03/15/23 23:47 03/15/23 23:47 PT/INR, D-dimer PT 11.6 sec (9.0-12.0) 03/15/23 15:22 INR 1.1 (<1.2) 03/15/23 15:22 Abnormal lab findings: Abnormal Labs 03/15/23 03/15/23 03/15/23 15:22 15:22 23:47 WBC 11.7 H 12.9 H RBC 3.53 L 3.34 L Hgb 11.9 L 11.3 L Hct 35.7 L 34.5 L MCV 101.2 H 103.1 H Neutrophils # 8.7 H 10.3 H BUN 21 H Creatinine 0.59 L Glucose 69 L Phosphorus 4.9 H AST 329 H ALT 233 H Lipase 599 H 03/15/23 23:47 WBC RBC Hgb Hct MCV Neutrophils # BUN Creatinine 0.47 L Glucose 66 L Phosphorus AST ALT Lipase Assessment and Plan Assessment: Acute alcohol withdrawal and delirium tremens. Last drink was reportedly on March 10, when he was incarcerated at [facility]. While in the emergency room, the patient reportedly became increasingly agitated and was treated with a total of 10 mg of Ativan, Librium, and phenobarbital. Despite this treatment, the patient's CIWA score was still greater than 30. Patient was admitted to the intensive care unit for closer monitoring. Alcoholism. Patient reports drinking at least one fifth of hard liquor per day. Elevated LFTs secondary to above Hypoglycemia, improved Plan: Patient's medications and labs were reviewed Continue CIWA protocol, Librium, phenobarbital Obtain ECG, and add Haldol for breakthrough agitation Seizure precautions Vitamin B1 replacement Accu-Cheks every [address] of the brain without contrast ordered when able Obtain urine drug screen Patient will be continued to be monitored in the intensive care unit I have personally seen and examined the patient, performed the documentation and the assessment and plan as written. Number of minutes spent on the visit:20 Time with Patient: Greater than 30
[2023-03-16] MEDS ORDERED: MAGNESIUM SULFATE-D5W PMX 1 GM in DEXTROSE/WATER 1 100ML.BAG IVPB ONE (01:50)
[2023-03-16] MEDS: POTASSIUM CHLORIDE 10 MEQ in WATER FOR INJECTION 1 100ML.BAG IVPB SCH ×2 (03:15→04:23)
[2023-03-16] MEDS: LORazepam 2 MG/ML INJ IV PRN ×5 (03:29→19:55)
[2023-03-16 03:44] LABS: Glucose,Whole Blood 73 mg/dL (70-110)
[2023-03-16 06:42] LABS: African American GFR (CKD) >90 (>60 ml/min/1.73 sqM); Anion Gap 13 mmol/L; Blood Urea Nitrogen 12 mg/dL (9-20); Calcium 8.6 mg/dL (8.4-10.2); Carbon Dioxide 20 mmol/L (22-30); Chloride 105 mmol/L (98-107); Glucose 57 mg/dL (74-99); Non-African American GFR(CKD) >90 (>60 ml/min/1.73 sqM); Sodium 138 mmol/L (137-145)
--- NOTE | 2023-03-16 07:00 | P.HPIM ---
History of Present Illness This is a pleasant 42 years old male with past medical history of gastroesophageal reflux disease. Patient was sent from yesterday custody for hallucination. Patient was admitted to the ICU due to severe confusion and hallucinations and agitation related to delirium tremens. Patient currently confused and could not provide information which was obtained from staff and medical records. Patient is currently on restraints (half-way handcuffs) ( Reported patient drinks a pint of alcohol daily. HE WAS TAKING VALIUM at half-way and custody. Patient is currently sleeping, could not provide any information about does not break up to verbal or tactile stimuli. Has pinpoint pupils. There was no reports of vomiting per officer at bedside Patient on arrival was reported alert awake and oriented 4. CIWA score in the emergency room was 33. Patient received several doses of benzodiazepines including Ativan, Librium and then he was placed also on phenobarbital. Patient vitals currently are stable and patient is afebrile Labs showing mild leukocytosis of 12.9, hemoglobin 11.3 BMP is unremarkable. Glucose control. Magnesium 1.8. Serum alcohol less than 10 Elevated liver enzymes with AST Harman ALT, AST is 329 and ALT 233. Total bilirubin is normal 0.9. Lipase slightly elevated at 599. Glucose was low on the this metabolic panel 69 and 66. Lipase is elevated 599. Amylase normal 68. Patient currently on CIWA protocol, also librium 25 mg 4 times a day. Also his received several doses of phenobarbital, thiamine [address] of the brain is pending Review of Systems ROS unobtainable: due to mental status Past Medical History Past Medical History: GERD/Reflux Additional Past Medical History / Comment(s): rt abdominal pain History of Any Multi-Drug Resistant Organisms: None Reported Past Surgical History: No Surgical Hx Reported Past Anesthesia/Blood Transfusion Reactions: No Reported Reaction Past Psychological History: No Psychological Hx Reported Smoking Status: Current every day smoker Past Alcohol Use History: Abuse, Daily, Heavy Past Drug Use History: Marijuana - Past Family History Mother Family Medical History: No Reported History Medications and Allergies Home Medications Medication Instructions Recorded Confirmed Type Multivit/Iron Sulf/Folic Acid 1 tab PO DAILY 03/15/23 03/15/23 History [Multivitamin with Iron] Promethazine [Phenergan] 25 mg PO TID PRN 03/15/23 03/15/23 History Thiamine [Vitamin B-1] 100 mg PO DAILY 03/15/23 03/15/23 History Allergies Allergy/AdvReac Type Severity Reaction Status Date / Time No Known Allergies Allergy Verified 03/15/23 16:55 Physical Exam Vitals: Vital Signs Temp Pulse Resp BP Pulse Ox 03/16/23 05:00 65 13 103/90 98 03/16/23 04:30 64 14 103/90 94 L 03/16/23 04:00 97.8 F 83 15 105/65 96 03/16/23 03:30 78 16 105/65 94 L 03/16/23 03:00 71 12 127/82 95 03/16/23 02:30 67 14 127/82 95 03/16/23 02:00 61 15 110/72 03/16/23 01:30 71 14 110/72 93 L 03/16/23 01:00 65 14 114/77 94 L 03/16/23 00:30 65 15 95 03/16/23 00:14 72 15 95 03/16/23 00:10 73 15 114/77 95 03/16/23 00:00 98.2 F 68 14 113/78 94 L 03/15/23 23:50 70 14 113/78 95 03/15/23 23:40 60 13 113/78 94 L 03/15/23 23:30 72 14 113/78 94 L 03/15/23 23:20 73 14 113/78 94 L 03/15/23 23:10 72 14 113/78 93 L 03/15/23 23:00 98.4 F 61 15 148/89 95 03/15/23 22:50 89 14 93 L 03/15/23 22:47 79 15 03/15/23 22:40 105 H 16 124/82 97 03/15/23 20:30 124 H 16 133/66 98 03/15/23 15:05 98.1 F 75 16 113/75 98 Intake and Output 03/15/23 03/15/23 03/16/23 14:59 22:59 06:59 Intake Total 250 Output Total 0 Balance 250 Intake: Intake, IV Titration 250 Amount Magnesium Sulfate-D5w Pmx 100 1 gm In Dextrose/Water 1 100ml.bag @ 100 mls/hr IVPB ONCE ONE Rx#: [id number] Potassium Chloride 10 meq 150 In Water For Injection 1 100ml.bag @ 100 mls/hr IVPB Q1H [facility] Rx#: [id number] Output: Urine 0 Other: Voiding Method Diaper Weight 56.699 kg 58 kg --GENERAL: The patient is confused and sleepy, but does not respond to verbal and tactile still I, not in any acute distress. Well developed, well nourished. HEENT: Pupils are round and equally reacting to light. EOMI. No scleral icterus. No conjunctival pallor. Normocephalic, atraumatic. No pharyngeal erythema. No thyromegaly. CARDIOVASCULAR: S1 and S2 present. No murmurs, rubs, or gallops. PULMONARY: Chest is clear to auscultation, no wheezing or crackles. ABDOMEN: Soft, nontender, nondistended, normoactive bowel sounds. No palpable organomegaly. MUSCULOSKELETAL: No joint swelling or deformity. EXTREMITIES: No cyanosis, clubbing, or pedal edema. NEUROLOGICAL: Gross neurological examination did not reveal any focal deficits. SKIN: No rashes. no petechiae. Results CBC & Chem 7: 03/15/23 23:47 03/16/23 05:00 Labs: Abnormal Lab Results - Last 24 Hours (Table) 03/15/23 03/15/23 03/15/23 Range/Units 15:22 15:22 23:47 WBC 11.7 H 12.9 H (3.8-10.6) k/uL RBC 3.53 L 3.34 L (4.30-5.90) m/uL Hgb 11.9 L 11.3 L (13.0-17.5) gm/dL Hct 35.7 L 34.5 L (39.0-53.0) % MCV 101.2 H 103.1 H (80.0-100.0) fL Neutrophils # 8.7 H 10.3 H (1.3-7.7) k/uL BUN 21 H (9-20) mg/dL Creatinine 0.59 L (0.66-1.25) mg/dL Glucose 69 L (74-99) mg/dL Phosphorus 4.9 H (2.5-4.5) mg/dL AST 329 H (17-59) U/L ALT 233 H (4-49) U/L Lipase 599 H (23-300) U/L 05/01/23 Range/Units 23:47 WBC (3.8-10.6) k/uL RBC (4.30-5.90) m/uL Hgb (13.0-17.5) gm/dL Hct (39.0-53.0) % MCV (80.0-100.0) fL Neutrophils # (1.3-7.7) k/uL BUN (9-20) mg/dL Creatinine 0.47 L (0.66-1.25) mg/dL Glucose 66 L (74-99) mg/dL Phosphorus (2.5-4.5) mg/dL AST (17-59) U/L ALT (4-49) U/L Lipase (23-300) U/L Assessment and Plan Assessment: Alcohol use disorder Delirium tremens secondary to severe alcohol withdrawal Acute MENTAL status changes most likely metabolic/toxic encephalopathy secondary to above Alcoholic transaminitis Plan: Continue with CIWA protocol Continue with librium CT of the brain is ordered and is pending Monitor liver Enzymes and electrolytes pulmonary/critical care team consult Urine drug screen is ordered and is pending. We'll check urine analysis and bladder scan Labs and medication were reviewed.. Continue same treatment. Continue with symptomatic treatment. Resume home medication. Monitor labs and vitals. DVT and GI prophylaxis. Further recommendations as per clinical course of the patient DVT prophylaxis: Subcutaneous heparin GI Prophylaxis: Ppi Prognosis is guarded Discussed with the staff
[2023-03-16] MEDS ORDERED: PHENobarbitaL 16.2 MG TAB PO ONE ×2 (07:28→11:28)
[2023-03-16 07:42] LABS: Glucose,Whole Blood 69 mg/dL (70-110)
[2023-03-16] MEDS: chlordiazePOXIDE 25 MG CAP PO SCH (07:51)
[2023-03-16] MEDS: PANTOPRAZOLE 40 MG/10 ML VIAL IV SCH (07:52)
[2023-03-16] MEDS: HEPARIN SODIUM,PORCINE/PF 5,000 UNIT/0.5 ML SYRINGE SQ SCH ×2 (07:52→21:24)
[2023-03-16 08:14] LABS: Basophils % (A) 0 %; Eosinophils # (A) 0.3 k/uL (0-0.7); Eosinophils % (A) 3 %; HCT 37.1 % (39.0-53.0); HGB 12.1 gm/dL (13.0-17.5); Lymphocytes # (A) 1.8 k/uL (1.0-4.8); Lymphocytes % (A) 16 %; MCH 33.4 pg (25.0-35.0); MCHC 32.7 g/dL (31.0-37.0); MCV 102.2 fL (80.0-100.0); Macrocytosis Slight; Mean Platelet Volume 9.3; Monocytes % (A) 9 %; Neutrophils % (A) 71 %; Platelet Count 192 k/uL (150-450); RBC 3.64 m/uL (4.30-5.90); RDW 12.7 % (11.5-15.5); WBC 11.3 k/uL (3.8-10.6)
[2023-03-16 08:37] LABS: Glucose,Whole Blood 135 mg/dL (70-110)
[2023-03-16 08:53] LABS: Appearance,Urine Clear (Clear); Bilirubin,Urine Negative (Negative); Blood,Urine Negative (Negative); Color,Urine Yellow; Glucose,Urine (UA) 1+ (Negative); Leukocyte Esterase,Urine Trace (Negative); Nitrite,Urine Negative (Negative); Protein,Urine Trace (Negative); RBC,Urine 2 /hpf (0-5); Specific Gravity,Urine 1.023 (1.001-1.035); WBC,Urine 12 /hpf (0-5)
[2023-03-16 08:58] LABS: Ketones,Urine 2+ (Negative)
[2023-03-16] MEDS ORDERED: THIAMINE 100 MG TAB PO SCH ×2 (09:00)
[2023-03-16 09:03] LABS: Amphetamine Screen,Urine Not Detected (NotDetected); Barbiturate Screen,Urine Detected (NotDetected); Benzodiazepines Screen,Urine Detected (NotDetected); Cocaine Screen,Urine Not Detected (NotDetected); Methadone Screen, Urine Not Detected (NotDetected); Opiate Screen,Urine Not Detected (NotDetected); Oxycodone Screen, Urine Not Detected (NotDetected); Phencyclidine Screen,Urine Not Detected (NotDetected); Tricyclic Antidepressant,Urine Not Detected (NotDetected); Urn Cannabinoid Scrn Detected (NotDetected)
[2023-03-16] MEDS ORDERED: SODIUM CHLORIDE 0.9% 1,000 ML with THIAMINE 100 MG IV SCH ×2 (09:30)
[2023-03-16] MEDS ORDERED: THIAMINE IV SCH ×2 (09:30)
[2023-03-16] MEDS ORDERED: NACL IV SCH ×2 (09:30)
[2023-03-16] MEDS ORDERED: DEXTROSE IV SCH ×2 (09:30)
[2023-03-16] MEDS: [UNRECOGNIZED DRUG - OTHER] IV SCH ×3 (09:48→20:14)
[2023-03-16] MEDS: DEXTROSE IV SCH ×3 (09:48→20:14)
[2023-03-16] MEDS: FOLIC ACID IV SCH ×3 (09:48→20:14)
[2023-03-16] MEDS: THIAMINE IV SCH ×3 (09:48→20:14)
--- NOTE | 2023-03-16 10:56 | US ---
EXAMINATION TYPE: US abdomen complete DATE OF EXAM: 03/16/2023 COMPARISON: Correlation CT 12/19/2020 CLINICAL INDICATION: Male, 42 years old with history of Abdominal pain elevated lipase, LFTs; Portable ICU patient TECHNIQUE: Multiple sonographic images of the abdomen are obtained. FINDINGS: EXAM MEASUREMENTS: Liver Length: 15.6 cm Gallbladder Wall: 0.1 cm CBD: 0.4 cm Spleen: 8.4 cm Right Kidney: 11.2 x 5.3 x 5.3 cm Left Kidney: 9.7 x 4.9 x 6.2 cm Pancreas: wnl Liver: Echogenic and coarse in appearance. No focal lesion seen. Gallbladder: wnl Evidence for sonographic Aviles's sign: neg CBD: wnl Spleen: wnl Right Kidney: Upper pole echogenic focus with twinkling artifact= 0.7 cm. Lower pole obscured by ov erlying bowel gas. No hydronephrosis. Left Kidney: No hydronephrosis or masses seen Upper IVC: wnl Abd Aorta: No AAA visualized at time of scan IMPRESSION: 1. Moderate hepatic steatosis. Correlate with LFTs, lipid profile, and patient risk factors. 2. Nonobstructive 7 mm upper pole right renal calculus. Lower pole of the right kidney is obscured by bowel gas shadowing. 3. No gallstones or biliary ductal dilatation.
[2023-03-16 13:09] LABS: Glucose,Whole Blood 84 mg/dL (70-110)
[2023-03-16 15:41] LABS: Glucose,Whole Blood 90 mg/dL (70-110)
[2023-03-16 20:57] LABS: Glucose,Whole Blood 74 mg/dL (70-110)
--- NOTE | 2023-03-16 20:58 | CT ---
EXAMINATION TYPE: CT brain wo con DATE OF EXAM: 03/16/2023 COMPARISON: None. HISTORY: AMS CT DLP: 1229.4 mGycm. Automated Exposure Control for Dose Reduction was Utilized. TECHNIQUE: CT scan of the head is performed without contrast. FINDINGS: There is no acute intracranial hemorrhage, mass effect, or midline shift identified. The ventricles and sulci are within normal limits in size. Talley-white matter differentiation is maintain ed. Mild to moderate mucosal thickening inferior left maxillary sinus. The globes are intact and the visualized sinuses are otherwise clear. IMPRESSION: No acute intracranial hemorrhage or midline shift is seen.
[2023-03-16 23:39] LABS: Glucose,Whole Blood 88 mg/dL (70-110)
[2023-03-17 06:00] LABS: Basophils % (A) 0 %; Eosinophils # (A) 0.4 k/uL (0-0.7); Eosinophils % (A) 4 %; HCT 38.7 % (39.0-53.0); HGB 12.6 gm/dL (13.0-17.5); Lymphocytes # (A) 1.4 k/uL (1.0-4.8); Lymphocytes % (A) 14 %; MCH 33.4 pg (25.0-35.0); MCHC 32.5 g/dL (31.0-37.0); MCV 102.8 fL (80.0-100.0); Macrocytosis Slight; Mean Platelet Volume 8.3; Monocytes % (A) 9 %; Neutrophils # (A) 7.3 k/uL (1.3-7.7); Neutrophils % (A) 71 %; Platelet Count 248 k/uL (150-450); RBC 3.76 m/uL (4.30-5.90); RDW 12.5 % (11.5-15.5); WBC 10.2 k/uL (3.8-10.6)
[2023-03-17 06:09] LABS: Glucose,Whole Blood 109 mg/dL (70-110)
[2023-03-17 06:09] LABS: African American GFR (CKD) >90 (>60 ml/min/1.73 sqM); Anion Gap 9 mmol/L; Blood Urea Nitrogen 3 mg/dL (9-20); Calcium 8.1 mg/dL (8.4-10.2); Carbon Dioxide 23 mmol/L (22-30); Chloride 105 mmol/L (98-107); Glucose 98 mg/dL (74-99); Magnesium 1.9 mg/dL (1.6-2.3); Non-African American GFR(CKD) >90 (>60 ml/min/1.73 sqM); Potassium 3.5 mmol/L (3.5-5.1); Sodium 137 mmol/L (137-145)
[2023-03-17] MEDS: DEXTROSE IV SCH ×2 (06:43→16:00)
[2023-03-17] MEDS: [UNRECOGNIZED DRUG - OTHER] IV SCH ×2 (06:43→16:00)
[2023-03-17] MEDS: FOLIC ACID IV SCH ×2 (06:43→16:00)
[2023-03-17] MEDS: THIAMINE IV SCH ×2 (06:43→16:00)
[2023-03-17] MEDS: PANTOPRAZOLE 40 MG/10 ML VIAL IV SCH (07:57)
[2023-03-17] MEDS: HEPARIN SODIUM,PORCINE/PF 5,000 UNIT/0.5 ML SYRINGE SQ SCH ×2 (07:57→20:26)
[2023-03-17] MEDS: MULTIVITAMINS, THERA 1 EACH TAB PO SCH (08:18)
[2023-03-17 10:07] VITALS: BMI 20.9
--- NOTE | 2023-03-17 10:56 | P.PN ---
Subjective Progress Note Date: 03/17/23 Principal diagnosis: Alcohol withdrawal syndrome. I'm seeing this patient in new consultation today 03/16/2023 in the intensive care unit for acute alcohol withdrawal. This is a 42-year-old white male with significant medical history of alcohol abuse. He is a poor historian but reports drinking at least one fifth of alcohol per day. Patient has been an inmate at the [facility] since March 10. This is reportedly his last drink. Patient was noted to start having hallucinations, tremors. He was receiving Valium while in care home, but his symptoms have progressively worsened. He was subsequently transferred to [facility] this afternoon. No reported history of alcohol withdrawal seizures. No reported head trauma. While in the emergency room, the patient reportedly became increasingly agitated and was treated with a total of 10 mg of Ativan, Librium, and phenobarbital. Despite this treatment, the patient's CIWA score w as still greater than 30. Patient was admitted to the intensive care unit for closer monitoring. Brain CT without contrast was ordered, but on hold, due to the patient being too agitated for the examination. Currently, the patient is laying in the bed, on room air, in no acute distress. He is shackled to the bed, and a police officers at the bedside. He is still quite disoriented. CIWA on my evaluation is 12. Most recent CBC showed some minimal leukocytosis with a WBC count of 13, hemoglobin 11.3, hematocrit 34.5, platelets 217,000. BMP was essentially unremarkable. Glucose was low at 66. LFTs are elevated with an AST of 329, ALT of 233. Lipase was also minimally elevated at 599. Serum alcohol level was less than 10 on arrival. Patient is currently on the CIWA protocol. Seizure precautions in place. Receiving Vitamin B 1 replacement. Vital signs are stable. Progress note dated 03/17/2023. 42-year-old male seen in room 266. The patient was seen yesterday in consultation, with alcohol withdrawal syndrome. He was brought to the intensive care unit for better management and monitoring. He received Ativan and Haldol, which seemed to really settle him down. Last night, the patient only required a small amount of medication including 2 mg of Ativan and 1 mg Haldol. He's on room air. He is getting D5.9 with multiple vitamins and thiamine at 100 mL an hour. The patient could be transferred out of the intensive care unit. I've asked psychiatry to see him and to just his medications. White count 10.2, hemoglobin 12.6, hematocrit 38.7, platelet count 248,000. Sodium 137, potassium 3.5, chlorides 105, CO2 23, BUN 3, creatinine 0.48. The patient's brain CAT s can, did not show any acute pathology. Abdominal ultrasound revealed moderate fatty liver, and a nonobstructive 7 mm upper pole right renal calculus. Objective - Vital Signs Vital signs: Vital Signs Temp 98.7 F 03/17/23 08:00 Pulse 102 H 03/17/23 09:00 Resp 14 03/17/23 09:00 BP 137/95 03/17/23 09:00 Pulse Ox 97 03/17/23 09:00 FiO2 Intake & Output 03/16/23 03/17/23 03/17/23 18:59 06:59 18:59 Intake Total 1040 2261.2 920 Output Total 2220 1155 300 Balance -1180 1106.2 620 Weight 58 kg 57.3 kg 57.3 kg Intake: IV 1040 1260 320 Dextrose 5%-0.9% NaCl 1, 1000 000 ml @ 100 mls/hr IV . BY D[facility]ATION [facility] Rx#: [id number] Invasive Line 1 110 30 10 Invasive Line 2 30 30 10 Thiamine 100 mg Folic 900 200 300 Acid 1 mg In Dextrose 5%- 0.9% NaCl 1,000 ml @ 100 mls/hr IV .BY [facility]ATION [facility] Rx#:[id number] Intake, IV Titration 1001.2 Amount Thiamine 100 mg Folic 1001.2 Acid 1 mg In Dextrose 5%- 0.9% NaCl 1,000 ml @ 100 mls/hr IV .BY DURATION [facility] Rx#:[id number] Oral 0 600 Output: Gastric Drainage 0 Urine 2220 1155 300 Stool 0 0 0 Urine/Stool Mix 0 Emesis 0 Oral Regurgitation 0 Other 0 Other: Voiding Method Indwelling Catheter Indwelling Catheter Indwelling Catheter # Bowel Movements 0 - Exam No acute distress, oriented 3. Currently on room air. HEENT examination is grossly unremarkable. Neck supple. Full range of motion. No adenopathy thyromegaly or neck vein distention. Cardiovascular examination reveals regular rhythm rate. S1-S2 normal. No S3 or S4. No discernible murmur noted. Heart rate 82 bpm. Lungs reveal clear breath sounds. Breath sounds are equal bilaterally. No adventitious lung sounds including wheezes rhonchi or crackles. Room air saturation is 97%. Abdomen soft bowel sounds are heard. No masses or tenderness. Extremities are intact. No cyanosis clubbing or edema. Skin is without rash or lesion. Neurologic examination is brief but nonfocal. - Labs CBC & Chem 7: 03/17/23 04:47 03/17/23 04:47 Labs: Abnormal Lab Results - Last 24 Hours (Table) 03/16/23 03/17/23 03/17/23 Range/Units 05:00 04:47 04:47 RBC 3.76 L (4.30-5.90) m/uL Hgb 12.6 L (13.0-17.5) gm/dL Hct 38.7 L (39.0-53.0) % MCV 102.8 H (80.0-100.0) fL Neutrophils # 8.0 H (1.3-7.7) k/uL BUN 3 L (9-20) mg/dL Creatinine 0.48 L (0.66-1.25) mg/dL Calcium 8.1 L (8.4-10.2) mg/dL Assessment and Plan Assessment: Acute alcohol withdrawal and possible delirium tremens. Chronic alcohol abuse. Alcoholic fatty liver. Hypoglycemia, resolved. Plan: Plan dated 03/17/2023. The patient can be transferred out of the intensive care unit to, to the general medical floor. The patient will continue with his IV fluids, and we'll ask psychiatry to see him. The patient only received 2 mg of Ativan overnight and 1 mg of Haldol. he has been very calm. No agitation and confusion. Nothing to suggest acute delirium tremens. Time with Patient: Less than 30
[2023-03-17] MEDS ORDERED: diazePAM 5 MG TAB PO STA (11:33)
--- NOTE | 2023-03-17 13:43 | P.CN ---
Psychiatric Consult - . Consult date: 03/17/23 Consult:: 03/17/23 13:06 IDENTIFYING DATA: This patient is a 42-year-old male, currently lives with his girlfriend in a mobile home, works remodeling homes, has 1 kid. Is currently at the skilled nursing. REASON FOR REFERRAL: Psychiatry was consulted for delirium HISTORY OF PRESENT ILLNESS: The patient presented to the hospital initially on 03/15 for alcohol withdrawal. Patient is currently an inmate with [facility] police. Patient apparently had stated that he typically drinks about 1-1/2-2 pints a day of whiskey. Apparently last reported drink was March 10. Patient was apparently being treated for alcohol withdrawal on Valium in the skilled nursing however was brought to the hospital. Patient apparently was hearing voices and visual hallucinations, having tremors, his AST and ALT were significantly elevated at 329 and 233 respectively. Lipase is elevated 599. Neurology was consulted and onboard. Patient has been receiving several doses of Ativan IV and also Haldol IVP to cope control of the withdrawals. Patient was tachycardic today otherwise blood pressure is improved. Patient was seen today laying in bed in agreeable to speak to keno writer / runner. He had appeared to have a constricted affect today. He correctly stated his name, correct location and also close to correct date beleived it was mar 15 2023. Patient states that he is here in the hospital for "detox" and states that he was drinking more than a fifth of alcohol per day. He claims that he was being treated with Valium at the skilled nursing however claims that he was still hallucinating and claims that he was "talking to someone that I found out wasn't there". He states that this shakes than mildly improving since being in the hospital. He states that he is in skilled nursing for nonpayment of child support. He states that his mood and anxiety are fair at this time however anxiety has been elevated at times during the day and has been receiving Ativan. Denies any history of seizures from withdrawals. He claims that his sleep has been poor, appetite has been fair. At this time patient denies any suicidal or homical ideations, intent or plan. Patient denies any auditory, visual hallucinations and denies any paranoia or delusions. Patients admits to using marijuana occasionally, does not use cigarettes, uses alcohol as noted above. PAST PSYCHIATRIC HISTORY: Patient has a a history of alcohol abuse and cannabis use. Patient denies being on any psychiatric medications. Patient denies any previous psychiatric hospitalizations. Patient denies any psychiatric outpatient follow-up. Patient denies any history of suicide attempts in the past. Past Medical History: GERD/Reflux Additional Past Medical History / Comment(s): rt abdominal pain History of Any Multi-Drug Resistant Organisms: None Reported Past Surgical History: No Surgical Hx Reported Past Anesthesia/Blood Transfusion Reactions: No Reported Reaction Past Psychological History: No Psychological Hx Reported Smoking Status: Current every day smoker Past Alcohol Use History: Abuse, Daily, Heavy Past Drug Use History: Marijuana ALLERGIES: as per EMR. CHEMICAL DEPENDENCY HISTORY: as per HPI. FAMILY PSYCHIATRIC/SUBSTANCE USE HISTORY: denies SOCIAL HISTORY: Patient was born and raised in [facility]. He states that he completed his GED. 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 He states that he currently lives with his girlfriend in a mobile home. He has 1. He is recently in skilled nursing for nonpayment of child support. He claims that he did have 4 DUIs and several different charges against him. MENTAL STATUS EXAM: General Appearance: Patient appears to be thin, stated age is alert, pleasant, and tends to be cooperative. Patient appears to have fair hygiene and grooming wearing hospital gown with fair eye contact. Behavior: Patient is calmly lying in bed without any agitated behavior. Fairly constricted. Speech: Patient's speech is fluent and nonpressured. Dexter Mood/Affect: Patient reports their mood is "alright", affect is congruent and constricted Suicidality/Homicidality: Patient denies having any suicidal or homicidal ideation intent or plan. Perceptions: Patient denies any visual hallucinations and denies any auditory hallucinations Though content/process: There is no evidence of any delusional thought content and thought process is linear and goal-directed. poverty of content. Memory and concentration: AOX3, grossly intact for the purposes of this session. Can spell "WORLD" backwards Judgment and insight: fair IMPRESSIONS: Alcohol use disorder, severe dependence currently in withdrawal delirium likely secondary to etoh withdrawal cannabis use disorder mild legal [problems PLAN: -At this time patient DOES NOT meet criteria for inpatient psychiatric admission. -Delirium precautions recommended with patient including - avoiding use of narcotics and MAINTENANCE MAN sedatives, limit anticholinergic medications when possible, frequent re-orientation, minimize use of restraints, open window shades during the day and close them at night -Would recommend the following medication changes/additions: start a quick taper of librium over the next 3 days, 20 mg tid and continue decreasing daily until wednesday. campral 333 mg tid increase to 666 mg tid tomorrow for cravings of etoh. trazodone 50 mg qhs for insomnia/mood -CIWA protocol with PRN Ativan for alcohol withdrawal. Continue to monitor vital signs. -workers compensation claims assistant to provide patient with outpatient mental health/psychiatry resources for appropriate follow up upon discharge -Banking And Finance Instructor spoke with patient about substance abuse and the harmful effects on medical and mental health, patient verbally understood and agreed. -workers compensation claims assistant to provide patient substance use treatment resources including AA/NA meetings in the community. -workers compensation claims assistant to provide patient with access line number to call for inpatient substance rehab -Communicated plan to patient's nurse -Psychiatry will sign off at this time unless further issues arise, Please contact with any questions.
[2023-03-17] MEDS: ACAMPROSATE CALCIUM 333 MG TABLET.DR PO SCH ×2 (17:40→20:26)
[2023-03-17 17:47] LABS: Appearance,Urine Clear (Clear); Bilirubin,Urine Negative (Negative); Blood,Urine Negative (Negative); Color,Urine Light Yellow; Glucose,Urine (UA) Negative (Negative); Ketones,Urine Negative (Negative); Leukocyte Esterase,Urine Trace (Negative); Mucus,Urine Rare /hpf; Nitrite,Urine Negative (Negative); PH, Urine 7.5 (5.0-8.0); Protein,Urine Negative (Negative); RBC,Urine 1 /hpf (0-5); Specific Gravity,Urine 1.006 (1.001-1.035); WBC,Urine 5 /hpf (0-5)
--- NOTE | 2023-03-17 19:30 | P.PN ---
Subjective This is a pleasant 42 years old male with past medical history of gastroesophageal reflux disease. Patient was sent from yesterday custody for hallucination. Patient was admitted to the ICU due to severe confusion and hallucinations and agitation related to delirium tremens. Patient currently confused and could not provide information which was obtained from staff and medical records. Patient is currently on restraints (usp handcuffs) ( Reported patient drinks a pint of alcohol daily. HE WAS TAKING [facility] at [facility] and custody. Patient is currently sleeping, could not provide any information about does not break up to verbal or tactile stimuli. Has pinpoint pupils. There was no reports of vomiting per officer at bedside Patient on arrival was reported alert awake and oriented 4. CIWA score in the emergency room was 33. Patient received several doses of benzodiazepines including Ativan, Librium and then he was placed also on phenobarbital. Patient vitals currently are stable and patient is afebrile Labs showing mild leukocytosis of 12.9, hemoglobin 11.3 BMP is unremarkable. Glucose control. Magnesium 1.8. Serum alcohol less than 10 Elevated liver enzymes with AST [place] ALT, AST is 329 and ALT 233. Total bilirubin is normal 0.9. Lipase slightly elevated at 599. Glucose was low on the this metabolic panel 69 and 66. Lipase is elevated 599. Amylase normal 68. Patient currently on CIWA protocol, also librium 25 mg 4 times a day. Also his received several doses of phenobarbital, thiamine [address] of the brain is pending 03/29/2023 Patient today is waking up, he knows in the hospital he knows that they cleared him of the president. Also he has insight into his illness and follow commands appropriately. His mentation is back to his baseline, looks normal. He denies any specific neurological complaints related His CIWA score this morning was around 8, with extra dose of volume Psychiatric team was consulted. Possible transfer out of the ICU today Objective - Vital Signs Vital signs: Vital Signs Temp 97.7 F 03/17/23 18:35 Pulse 78 03/17/23 18:35 Resp 16 03/17/23 18:35 BP 124/83 03/17/23 18:35 Pulse Ox 99 03/17/23 18:35 FiO2 Intake & Output 03/17/23 03/17/23 03/18/23 06:59 18:59 06:59 Intake Total 3261.2 4399.2 Output Total 1155 1900 Balance 2106.2 2499.2 Weight 57.3 kg 57.3 kg Intake: IV 1260 1220 Dextrose 5%-0.9% NaCl 1, 1000 900 000 ml @ 100 mls/hr IV . BY DURATION MUKUL Rx#: [id number] Invasive Line 1 30 10 Invasive Line 2 30 10 Thiamine 100 mg Folic 200 300 Acid 1 mg In Dextrose 5%- 0.9% NaCl 1,000 ml @ 100 mls/hr IV .BY DURATION MUKUL Rx#:[id number] Intake, IV Titration 2001.2 1001.2 Amount Dextrose 5%-0.9% NaCl 1, 1000 000 ml @ 100 mls/hr IV . BY DURATION MUKUL Rx#: [id number] Thiamine 100 mg Folic 1001.2 1001.2 Acid 1 mg In Dextrose 5%- 0.9% NaCl 1,000 ml @ 100 mls/hr IV .BY DURATION MUKUL Rx#:[id number] Oral 2178 Output: Urine 1155 1900 Stool 0 0 Other: Voiding Method Indwelling Catheter Indwelling Catheter # Voids 0 - Exam GENERAL: The patient is alert and oriented x3, not in any acute distress. Well developed, well nourished. HEENT: Pupils are round and equally reacting to light. EOMI. No scleral icterus. No conjunctival pallor. Normocephalic, atraumatic. No pharyngeal erythema. No thyromegaly. CARDIOVASCULAR: S1 and S2 present. No murmurs, rubs, or gallops. PULMONARY: Chest is clear to auscultation, no wheezing or crackles. ABDOMEN: Soft, nontender, nondistended, normoactive bowel sounds. No palpable organomegaly. MUSCULOSKELETAL: No joint swelling or deformity. EXTREMITIES: No cyanosis, clubbing, or pedal edema. NEUROLOGICAL: Gross neurological examination did not reveal any focal deficits. SKIN: No rashes. no petechiae. - Labs CBC & Chem 7: 03/17/23 04:47 03/17/23 04:47 Labs: Abnormal Lab Results - Last 24 Hours (Table) 03/17/23 03/17/23 03/17/23 Range/Units 04:47 04:47 17:17 RBC 3.76 L (4.30-5.90) m/uL Hgb 12.6 L (13.0-17.5) gm/dL Hct 38.7 L (39.0-53.0) % MCV 102.8 H (80.0-100.0) fL BUN 3 L (9-20) mg/dL Creatinine 0.48 L (0.66-1.25) mg/dL Calcium 8.1 L (8.4-10.2) mg/dL Ur Leukocyte Esterase Trace H (Negative) Urine Mucus Rare H (None) /hpf Assessment and Plan Assessment: Alcohol use disorder Delirium tremens secondary to severe alcohol withdrawal Acute MENTAL status changes most likely metabolic/toxic encephalopathy secondary to above Alcoholic transaminitis Plan: Transfer out of the ICU Continue with CIWA protocol Continue with librium Psych consult pulmonary/critical care team consult Urine drug screen is ordered and is pending. We'll check urine analysis and bladder scan Labs and medication were reviewed.. Continue same treatment. Continue with symptomatic treatment. Resume home medication. Monitor labs and vitals. DVT and GI prophylaxis. Further recommendations as per clinical course of the patient DVT prophylaxis: Subcutaneous heparin GI Prophylaxis: Ppi Prognosis is guarded Discussed with the staff
[2023-03-17] MEDS ORDERED: traZODone HCL 50 MG TAB PO SCH (21:00)
[2023-03-18] MEDS: DEXTROSE IV SCH (02:49)
[2023-03-18] MEDS: FOLIC ACID IV SCH (02:49)
[2023-03-18] MEDS: THIAMINE IV SCH (02:49)
[2023-03-18] MEDS: [UNRECOGNIZED DRUG - OTHER] IV SCH (02:49)
[2023-03-18] MEDS: HEPARIN SODIUM,PORCINE/PF 5,000 UNIT/0.5 ML SYRINGE SQ SCH (07:52)
[2023-03-18] MEDS: MULTIVITAMINS, THERA 1 EACH TAB PO SCH (07:53)
[2023-03-18] MEDS: PANTOPRAZOLE 40 MG/10 ML VIAL IV SCH (07:53)
[2023-03-18 08:50] VITALS: BP 129/87; PULSE 76; RESP 19; TEMP 97.6
[2023-03-18] MEDS ORDERED: ACAMPROSATE CALCIUM 333 MG TABLET.DR PO SCH (09:00)
[2023-03-18 11:16] LABS: ALT 173 U/L (10-49); AST 166 U/L (14-35); African American GFR (CKD) 146.3 (60.0-200.0); Albumin 3.2 g/dL (3.8-4.9); Albumin/Globulin Ratio 1.06 (1.60-3.17); Alkaline Phosphatase 103 U/L (41-126); BUN/Creat Ratio 6.46 Ratio (12.00-20.00); Bilirubin, Conjugated <0.20 mg/dL (0.20-0.40); Blood Urea Nitrogen 3.7 mg/dL (9.0-27.0); Calcium 8.5 mg/dL (8.7-10.3); Carbon Dioxide 21.6 mmol/L (20.0-27.5); Chloride 111 mmol/L (96-109); Glucose 110 mg/dL (70-110); Non-African American GFR(CKD) 126.2 (60.0-200.0); Potassium 3.9 mmol/L (3.5-5.5); Sodium 141 mmol/L (135-145); Total Protein 6.2 g/dL (6.2-8.2)
[2023-03-18 11:43] LABS: Glucose,Whole Blood 119 mg/dL (70-110)
--- NOTE | 2023-03-18 22:29 | P.DS ---
Providers Date of admission: 03/15/23 21:45 Attending physician: Harsh Toledo Consults: 03/15/23 21:42 Consult Physician Stat Consulting Provider: Alo Ambriz Consult Reason/Comments: DTs, alcohol withdrawal delirium Do you want consulting provider notified?: Yes 03/17/23 08:48 Consult Physician Routine Consulting Provider: Raheem Gibson Consult Reason/Comments: Delerium Do you want consulting provider notified?: Yes Primary care physician: Briana Snyder Hospital Course: Diagnoses: Alcohol use disorder Delirium tremens secondary to severe alcohol withdrawal Acute MENTAL status changes most likely metabolic/toxic encephalopathy secondary to above. Resolved and patient back to baseline over the last 48 hours Alcoholic transaminitis, improving Hospital course: This is a pleasant 42 years old male with past medical history of gastroesophageal reflux disease. Patient was sent from yesterday custody/[facility] for hallucination. Patient was admitted to the ICU due to severe confusion and hallucinations and agitation related to delirium tremens. Patient evaluated by pulmonary/critical care team and treated accordingly to be stabilized then he was sent to the general medical floor. Patient also to follow the by psychiatrist surface was started him on Librium taper, and today is the first day of the taper. Also patient was treated with CIWA score, His CIWA score since last night was 0-1, he required no further Ativan when necessary doses. This morning he was fully awake oriented, calm, height with his sleep. He denies any specific complaint. No chest pain or dyspnea. No change in urine or bowel bits. No fever. No headache dizziness weakness or numbness. Patient feels he can be discharged. Pulmonary and psychiatry service or the site of the case. balcony worker/housing case manager consulted to provide alcohol rehab resources for the patient Patient will be discharged to finish his taper off Librium today and tomorrow also is provided with trazodone when necessary for insomnia. Problems and management plan were discussed with the patient and he verbalized understanding and acceptance Patient was found stable and can be discharge back to [facility] in guarded prognosis however he needs follow-up as an outpatient. Patient was instructed to follow up with PCP within one week and patient agrees Physical exam Gen: patient is a AAOx3, no distress CVS: S1-S2, RRR, no murmur Lungs: B/L CTA, no wheezing Abdomen: soft, no distention, no tenderness, positive bowel sounds Extremity: no leg edema or induration Time spent more than 35 minutes Plan - Discharge Summary New Discharge Prescriptions: New Acamprosate Calcium [Campral] 666 mg PO TID tab chlordiazePOXIDE HCl [Librium] 10 mg PO DIRECTED 2 Days #5 capsule traZODone HCL [Desyrel] 50 mg PO HS PRN 14 Days #14 tab PRN Reason: Insomnia Continue Thiamine [Vitamin B-1] 100 mg PO DAILY 30 Days #30 tab Promethazine [Phenergan] 25 mg PO TID PRN PRN Reason: Nausea And Vomiting Multivit/Iron Sulf/Folic Acid [Multivitamin with Iron] 1 tab PO DAILY Discharge Medication List Multivit/Iron Sulf/Folic Acid [Multivitamin with Iron] 1 tab PO DAILY 03/15/23 [History] Promethazine [Phenergan] 25 mg PO TID PRN 03/15/23 [History] Acamprosate Calcium [Campral] 666 mg PO TID tab 03/18/23 [Rx] Thiamine [Vitamin B-1] 100 mg PO DAILY 30 Days #30 tab 03/18/23 [Rx] chlordiazePOXIDE HCl [Librium] 10 mg PO DIRECTED 2 Days #5 capsule 03/18/23 [Rx] traZODone HCL [Desyrel] 50 mg PO HS PRN 14 Days #14 tab 03/18/23 [Rx] Follow up Appointment(s)/Referral(s): Briana Snyder MD [Primary Care Provider] - 1-2 days Patient Instructions/Handouts: Seizure/Epilepsy Discharge Instructions & Follow-Up, Alcohol Intoxication (DC) Activity/Diet/Wound Care/Special Instructions: regular diet activity is restricted till you see your doctor we recommend to check his Blood tests with your doctor including your CBC AND BMP with your doctor Discharge/Stand Alone Forms: AA Meetings [place], Outpatient Counseling, Inp Substance Abuse Facilities Discharge Disposition: OTHER INSTITUTION NOT DEFINED
== END 2023-03-18 14:43 | disposition home or self-care (01) | DRG 896 ==
LOC: EC 14:59 → 2SICU 21:45 → 4SSUR 03-17 18:14
PROVIDERS: ADMIT Hospitalist; ATTEND Hospitalist
PROC: HZ2ZZZZ Detoxification Services for Substance Abuse Treatment (ICD-10-PCS; principal; 2023-03-15)
DX: F10.232 Alcohol dependence with withdrawal with perceptual disturbance (principal); G92.8 Other toxic encephalopathy; R44.0 Auditory hallucinations; F10.231 Alcohol dependence with withdrawal delirium; R74.01 Elevation of levels of liver transaminase levels; R44.1 Visual hallucinations; K21.9 Gastro-esophageal reflux disease without esophagitis; E16.2 Hypoglycemia, unspecified; K70.0 Alcoholic fatty liver; N20.0 Calculus of kidney; Z78.1 Physical restraint status; Z71.41 Alcohol abuse counseling and surveillance of alcoholic
CPT/HCPCS: 36415; 70450; 76700; 80048; 80053; 80076; 80306; 80320; 81001; 82150; 83690; 83735; 84100; 84132; 85025; 85610

== ENCOUNTER → 2024-10-10 | Outpatient (CLI) | payer OTHER ==
[2024-10-07 05:44] LABS: Cryptosporidium Antigen Negative (Negative)
--- NOTE | 2024-10-10 20:41 | CT ---
EXAMINATION TYPE: CT chest abdomen w con DATE OF EXAM: 10/10/2024 7:00 PM COMPARISON: Multiple prior CT studies, most recently dated 12/19/2020. CLINICAL INDICATION: Male, 43 years old with history of R10.9 UNSPECIFIED ABDOMINAL PAIN R63.4, F10.2 1; PHH, Abdominal pain and constipation >6 months. Weightloss Technique: CT chest abdomen w con; Multiple axial images were obtained. Two-dimensional coronal and s agittal reconstructions were obtained. Contrast used:100 mL of Isovue 300 with IV Contrast, (None if empty) Oral contrast used: with Oral Contrast CT DLP: 394.5 mGycm, Automated exposure control for dose reduction was used. Findings: CHEST: LUNGS/ PLEURA: No focal consolidation, pneumothorax or pleural effusion. Suggestion of early emphysem a in the apices. AIRWAY: Patent and unremarkable. HEART: Size within normal limits. MEDIASTINUM: No gross evidence of adenopathy. VASCULATURE: No aortic aneurysm. MUSCULOSKELETAL: No acute osseous abnormalities. SOFT TISSUES/LYMPH NODES: Unremarkable. LOWER NECK: No significant findings. ABDOMEN: ABDOMEN LIVER: Unremarkable GALLBLADDER AND BILE DUCTS: Unremarkable. PANCREAS: Unremarkable. SPLEEN: Unremarkable. ADRENAL GLANDS: Unremarkable. KIDNEYS AND URETERS: Obstructing 11 mm calculus within the right renal pelvis causing moderate upstre am hydronephrosis. There is subtle asymmetric hypoenhancement of the right renal parenchyma. Addition ally, delayed nephrogram demonstrates no significant contrast in the right ureter. Nonobstructing 4 m m calculus in the inferior right kidney. No definite left-sided nephrolithiasis or hydronephrosis. En tirety of the right ureter not visualized due to lack of corresponding pelvis imaging. PELVIS Not included within the [id number]. IMPRESSION: 1. No acute abnormality in the chest. 2. Obstructing 11 mm calculus in the right renal pelvis causing moderate upstream hydronephrosis and delayed right nephrogram. 3. Additional nonobstructing 12 mm calculus in the inferior right kidney. [facility], , 10/10/2024 8:39 PM
== END | disposition home or self-care (01) ==
LOC: RADCTMAIN 10-06 17:23
PROVIDERS: ATTEND Family Medicine
DX: N13.2 Hydronephrosis with renal and ureteral calculous obstruction (principal); R63.4 Abnormal weight loss; F10.21 Alcohol dependence, in remission
CPT/HCPCS: 87045; 87329; 87328; 87046; 71260; 74160; G0328; Q9967

== ENCOUNTER 2024-10-19 09:58 | Emergency (ER) | payer OTHER ==
[2024-10-19 10:05] VITALS: BP 103/64; PULSE 66; RESP 16; TEMP 97.8
--- NOTE | 2024-10-19 10:59 | ED ---
General Adult HPI - General Chief complaint: Abdominal Pain Stated complaint: kidney stone Time Seen by Provider: 10/19/24 10:08 Source: patient, RN notes reviewed Mode of arrival: ambulatory Limitations: no limitations - History of Present Illness Initial comments: 43-year-old male presents to the emergency department for evaluation of right lower abdominal pain. Patient reports that this has been going on for a couple of weeks. He does note that he has seen his PCP for this and underwent a CT scan. Patient reports that he was diagnosed with an 11 mm obstructing stone on the right. He does report that he has had some difficulty initiating his stream with urination. He also admits to dark urine. He denies recent fever, chills. Admits to nausea and vomiting. Denies any significant past medical history. - Related Data Home Medications Medication Instructions Recorded Confirmed TerraEchos Supplement 1 cap PO TID-W/MEALS 10/19/24 10/19/24 Peppermint Oil Allergies Allergy/AdvReac Type Severity Reaction Status Date / Time No Known Allergies Allergy Verified 10/19/24 11:12 Review of Systems ROS Statement: Those systems with pertinent positive or pertinent negative responses have been documented in the HPI. ROS Other: All systems not noted in ROS Statement are negative. Past Medical History Past Medical History: GERD/Reflux Additional Past Medical History / Comment(s): rt abdominal pain History of Any Multi-Drug Resistant Organisms: None Reported Past Surgical History: No Surgical Hx Reported Past Anesthesia/Blood Transfusion Reactions: No Reported Reaction Past Psychological History: No Psychological Hx Reported Smoking Status: Former smoker Past Alcohol Use History: None Reported Past Drug Use History: Marijuana - Past Family History Mother Family Medical History: No Reported History General Exam Limitations: no limitations General appearance: alert, in no apparent distress Head exam: Present: atraumatic, normocephalic, normal inspection Eye exam: Present: normal appearance, PERRL, EOMI. Absent: scleral icterus, conjunctival injection, periorbital swelling Respiratory exam: Present: normal lung sounds bilaterally. Absent: respiratory distress, wheezes, rales, rhonchi, stridor Cardiovascular Exam: Present: regular rate, normal rhythm, normal heart sounds. Absent: systolic murmur, diastolic murmur, rubs, gallop, clicks GI/Abdominal exam: Present: soft, tenderness, normal bowel sounds. Absent: distended, guarding, rebound, rigid Extremities exam: Present: normal inspection, full ROM, normal capillary refill. Absent: tenderness, pedal edema, joint swelling, calf tenderness Back exam: Present: normal inspection Neurological exam: Present: alert, oriented X3 Psychiatric exam: Present: normal affect, normal mood Skin exam: Present: warm, dry, intact, normal color. Absent: rash Course Vital Signs 10/19/24 10:01 Temperature 97.8 F Pulse Rate 66 Respiratory 16 Rate Blood Pressure 103/64 O2 Sat by Pulse 100 Oximetry Medical Decision Making - Medical Decision Making Was pt. sent in by a medical professional or institution (, PA, PATENT LAWYER, urgent care, hospital, or senior living...) When possible be specific @ -No Did you speak to anyone other than the patient for history (EMS, parent, family, police, friend...)? What history was obtained from this source @ -No Did you review nursing and triage notes (agree or disagree)? Why? @ -I reviewed and agree with nursing and triage notes Were old charts reviewed (outside hosp., previous admission, EMS record, old EKG, old radiological studies, urgent care reports/EKG's, senior living records)? Report findings @ -No old charts were reviewed Differential Diagnosis (chest pain, altered mental status, abdominal pain women, abdominal pain men, vaginal bleeding, weakness, fever, dyspnea, syncope, headache, dizziness, GI bleed, back pain, seizure, CVA, palpatations, mental health, musculoskeletal)? @ -Differential Abdominal Pain Men: Appendicitis, cholecystitis, diverticulosis, ischemic bowel, pancreatitis, hepatitis, UTI, gastroenteritis, AAA, incarcerated hernia, bowel obstruction, constipation, inflammatory bowel, hepatitis, peptic ulcer disease, splenic in farction, perforated viscus, testicular torsion, this is not meant to be an all- inclusive list EKG interpreted by me (3pts min.). @ -None X-rays interpreted by me (1pt min.). @ -KUB x-ray reveals 2 abdominal calcifications in the right abdomen likely within the right ureter CT interpreted by me (1pt min.). @ -None done U/S interpreted by me (1pt. min.). @ -Kidney and bladder ultrasound reveals mild right hydronephrosis, nonobstructive right renal calculi What testing was considered but not performed or refused? (CT, X-rays, U/S, labs)? Why? @ -None What meds were considered but not given or refused? Why? @ -None Did you discuss the management of the patient with other professionals (pr ofessionals i.e. , PA, PATENT LAWYER, lab, RT, psych nurse, mental health social worker, bevel polisher, teacher, deputy juvenile officer, disease case manager)? Give summary @ -No Was smoking cessation discussed for >3mins.? @ -No Was critical care preformed (if so, how long)? @ -No Were there social determinants of health that impacted care today? How? (Homelessness, low income, unemployed, alcoholism, drug addiction, transportation, low edu. Level, literacy, decrease access to med. care, [place] [facility], rehab)? @ -No Was there de-escalation of care discussed even if they declined (Discuss DNR or withdrawal of care, Hospice)? DNR status @ -No What co-morbidities impacted this encounter? (DM, HTN, Smoking, COPD, CAD, Cancer, CVA, ARF, Chemo, Hep., AIDS, mental health diagnosis, sleep apnea, morbid obesity)? @ -None Was patient admitted / discharged? Hospital course, mention meds given and route, prescriptions, significant lab abnormalities, going to OR and other pertinent info. @ -Discharge. Patient presented to the emergency department for evaluation of abdominal pain. Laboratory studies were obtained revealing leukocytosis with a WBC of 16. CMP essentially unremarkable. Lactic acid 3.3 he was provided fluids in the ED. UA obtained following resulting of the laboratory studies which showed 1+ protein, 1+ ketones, moderate blood, moderate leukocyte esterase. Patient was provided Toradol in the ED he reports no significant improvement in his symptoms following this. Additional medication for analgesia was administered and I discussed with patient that I would contact the urologist a patient left AGAINST MEDICAL ADVICE prior to receiving the second dose of medication and prior to me contacting urology. case was discussed with Dr. Goodrich. Undiagnosed new problem with uncertain prognosis? @ -No Drug Therapy requiring intensive monitoring for toxicity (Heparin, Nitro, Insulin, Cardizem)? @ -No Were any procedures done? @ -No Diagnosis/symptom? @ -Nephrolithiasis Acute, or Chronic, or Acute on Chronic? @ -Acute Uncomplicated (without systemic symptoms) or Complicated (systemic symptoms)? @ -Uncomplicated Side effects of treatment? @ -No Exacerbation, Progression, or Severe Exacerbation? @ -No Poses a threat to life or bodily function? How? (Chest pain, [place], NH, pneumonia, PE, COPD, DKA, ARF, appy, cholecystitis, CVA, Diverticulitis, Homicidal, Suicidal, threat to staff... and all critical care pts) @ -No - Lab Data Result diagrams: 10/19/24 10:52 10/19/24 10:52 Lab Results 10/19/24 10/19/24 10/19/24 Range/Units 10:52 10:52 10:52 WBC 16.3 H (3.8-10.6) k/uL RBC 4.25 L (4.30-5.90) m/uL Hgb 13.5 (13.0-17.5) gm/dL Hct 41.0 (39.0-53.0) % MCV 96.5 (80.0-100.0) fL MCH 31.7 (25.0-35.0) pg MCHC 32.8 (31.0-37.0) g/dL RDW 12.5 (11.5-15.5) % Plt Count 270 (150-450) k/uL MPV 7.1 Neutrophils % 85 % Lymphocytes % 11 % Monocytes % 2 % Eosinophils % 1 % Basophils % 0 % Neutrophils # 13.9 H (1.3-7.7) k/uL Lymphocytes # 1.9 (1.0-4.8) k/uL Monocytes # 0.3 (0-1.0) k/uL Eosinophils # 0.1 (0-0.7) k/uL Basophils # 0.0 (0-0.2) k/uL Sodium 139 (137-145) mmol/L Potassium 4.2 (3.5-5.1) mmol/L Chloride 106 (98-107) mmol/L Carbon Dioxide 22 (22-30) mmol/L Anion Gap 11 mmol/L BUN 16 (9-20) mg/dL Creatinine 0.76 (0.66-1.25) mg/dL Est GFR (CKD-EPI)AfAm >90 (>60 ml/min/1.73 sqM) Est GFR (CKD-EPI)NonAf >90 (>60 ml/min/1.73 sqM) Glucose 79 (74-99) mg/dL Lactic Ac Sepsis Rflx Plasma Lactic Acid Iban 3.3 H* (0.7-2.0) mmol/L Calcium 9.0 (8.4-10.2) mg/dL Total Bilirubin 0.8 (0.2-1.3) mg/dL AST 29 (17-59) U/L ALT 19 (4-49) U/L Alkaline Phosphatase 70 (38-126) U/L Total Protein 7.6 (6.3-8.2) g/dL Albumin 4.2 (3.5-5.0) g/dL Urine Color Urine Appearance (Clear) Urine pH (5.0-8.0) Ur Specific Roosevelt (1.001-1.035) Urine Protein (Negative) Urine Glucose (UA) (Negative) Urine Ketones (Negative) Urine Blood (Negative) Urine Nitrite (Negative) Urine Bilirubin (Negative) Urine Urobilinogen (<2.0) mg/dL Ur Leukocyte Esterase (Negative) Urine RBC (0-5) /hpf Urine WBC (0-5) /hpf Ur Squamous Epith Cells (0-4) /hpf Urine Mucus (None) /hpf 10/19/24 10/19/24 Range/Units 11:43 11:51 WBC (3.8-10.6) k/uL RBC (4.30-5.90) m/uL Hgb (13.0-17.5) gm/dL Hct (39.0-53.0) % MCV (80.0-100.0) fL MCH (25.0-35.0) pg MCHC (31.0-37.0) g/dL RDW (11.5-15.5) % Plt Count (150-450) k/uL MPV Neutrophils % % Lymphocytes % % Monocytes % % Eosinophils % % Basophils % % Neutrophils # (1.3-7.7) k/uL Lymphocytes # (1.0-4.8) k/uL Monocytes # (0-1.0) k/uL Eosinophils # (0-0.7) k/uL Basophils # (0-0.2) k/uL Sodium (137-145) mmol/L Potassium (3.5-5.1) mmol/L Chloride (98-107) mmol/L Carbon Dioxide (22-30) mmol/L Anion Gap mmol/L BUN (9-20) mg/dL Creatinine (0.66-1.25) mg/dL Est GFR (CKD-EPI)AfAm (>60 ml/min/1.73 sqM) Est GFR (CKD-EPI)NonAf (>60 ml/min/1.73 sqM) Glucose (74-99) mg/dL Lactic Ac Sepsis Rflx Y Plasma Lactic Acid Iban (0.7-2.0) mmol/L Calcium (8.4-10.2) mg/dL Total Bilirubin (0.2-1.3) mg/dL AST (17-59) U/L ALT (4-49) U/L Alkaline Phosphatase (38-126) U/L Total Protein (6.3-8.2) g/dL Albumin (3.5-5.0) g/dL Urine Color Yellow Urine Appearance Clear (Clear) Urine pH 5.0 (5.0-8.0) Ur Specific [place] 1.024 (1.001-1.035) Urine Protein 1+ H (Negative) Urine Glucose (UA) Negative (Negative) Urine Ketones 1+ H (Negative) Urine Blood Moderate H (Negative) Urine Nitrite Negative (Negative) Urine Bilirubin Negative (Negative) Urine Urobilinogen <2.0 (<2.0) mg/dL Ur Leukocyte Esterase Moderate H (Negative) Urine RBC 12 H (0-5) /hpf Urine WBC 38 H (0-5) /hpf Ur Squamous Epith Cells <1 (0-4) /hpf Urine Mucus Occasional H (None) /hpf Disposition Clinical Impression: Left against medical advice, Kidney stone Disposition: LEFT AGAINST MEDICAL ADVICE Is patient prescribed a controlled substance at d/c from ED?: No Referrals: Barbi Neil MD [Primary Care Provider] - 1-2 days
[2024-10-19 11:01] LABS: Basophils % (A) 0 %; Eosinophils # (A) 0.1 k/uL (0-0.7); Eosinophils % (A) 1 %; HGB 13.5 gm/dL (13.0-17.5); Lymphocytes # (A) 1.9 k/uL (1.0-4.8); Lymphocytes % (A) 11 %; MCH 31.7 pg (25.0-35.0); MCHC 32.8 g/dL (31.0-37.0); MCV 96.5 fL (80.0-100.0); Mean Platelet Volume 7.1; Monocytes # (A) 0.3 k/uL (0-1.0); Monocytes % (A) 2 %; Neutrophils # (A) 13.9 k/uL (1.3-7.7); Neutrophils % (A) 85 %; Platelet Count 270 k/uL (150-450); RBC 4.25 m/uL (4.30-5.90); RDW 12.5 % (11.5-15.5); WBC 16.3 k/uL (3.8-10.6)
[2024-10-19] MEDS: SODIUM CHLORIDE 0.9% 1,000 ML IV ONE (11:11)
[2024-10-19] MEDS: KETOROLAC 15 MG/ML 1 ML VIAL IVP STA (11:11)
[2024-10-19 11:27] LABS: ALT 19 U/L (4-49); AST 29 U/L (17-59); African American GFR (CKD) >90 (>60 ml/min/1.73 sqM); Albumin 4.2 g/dL (3.5-5.0); Alkaline Phosphatase 70 U/L (38-126); Anion Gap 11 mmol/L; Blood Urea Nitrogen 16 mg/dL (9-20); Carbon Dioxide 22 mmol/L (22-30); Chloride 106 mmol/L (98-107); Glucose 79 mg/dL (74-99); Non-African American GFR(CKD) >90 (>60 ml/min/1.73 sqM); Potassium 4.2 mmol/L (3.5-5.1); Sodium 139 mmol/L (137-145); Total Bilirubin 0.8 mg/dL (0.2-1.3); Total Protein 7.6 g/dL (6.3-8.2)
[2024-10-19 12:03] LABS: Appearance,Urine Clear (Clear); Bilirubin,Urine Negative (Negative); Blood,Urine Moderate (Negative); Color,Urine Yellow; Glucose,Urine (UA) Negative (Negative); Ketones,Urine 1+ (Negative); Leukocyte Esterase,Urine Moderate (Negative); Mucus,Urine Occasional /hpf; Nitrite,Urine Negative (Negative); Protein,Urine 1+ (Negative); RBC,Urine 12 /hpf (0-5); Specific Gravity,Urine 1.024 (1.001-1.035); Squamous Epithelial Cell,Urine <1 /hpf (0-4); Urobilinogen,Urine <2.0 mg/dL (<2.0); WBC,Urine 38 /hpf (0-5)
--- NOTE | 2024-10-19 12:29 | XR ---
KUB HISTORY: Kidney stone. COMPARISON: None. TECHNIQUE: 2 upright views of the abdomen were obtained. Findings compare the lung bases are clear. There is no free air beneath the diaphragm. The bowel gas pattern is nonspecific and there is no evidence of obstruction. There is a mild amount stool within the colon. There are 2 calcifications within a 12 mm calcification overlying the right transverse process of L3 and a second 14.6 mm calcification immediately superior to the right transverse process of L4.. These likely represent right ureteral calcifications. There are no calcifications in the left abdomen or p tayla. The osseous structures are intact. IMPRESSION: 1. Nonspecific bowel gas pattern. No free air or obstruction. 2. 2 abdominal calcifications in the right mid abdomen, likely within the right ureter as described a carlos. [facility], Workstation: [id number] 10/19/2024 12:26 PM
--- NOTE | 2024-10-19 13:08 | US ---
EXAMINATION TYPE: US kidneys/renal and bladder DATE OF EXAM: 10/19/2024 COMPARISON: KUB radiograph 10/19/2024, CT chest abdomen 10/10/2024 CLINICAL INDICATION: Male, 43 years old with history of RT kidney stone; Right flank pain, hematuria TECHNIQUE: Grayscale imaging of the bilateral kidneys and urinary bladder: FINDINGS: EXAM MEASUREMENTS: Right Kidney: 10.8 x 4.7 x 6.4 cm Left Kidney: 11.2 x 5.2 x 4.4 cm Right Kidney: stones, largest 2 = 1.2cm. mild hydronephrosis Left Kidney: no evidence of hydronephrosis Bladder: not fully distended Bilateral Jets seen: no No left hydronephrosis. Mild right hydronephrosis. Nonobstructive right renal calculi measuring up to 1.2 cm. No left renal calculi identified. No renal masses identified. The urinary bladder is not fully distended. The ureters are not identified. IMPRESSION: 1. Mild right hydronephrosis. Consider further evaluation with CT to assess for ureteral calcificati on as clinically indicated. 2. Nonobstructive right renal calculi. [facility], , 10/19/2024 1:06 PM
[2024-10-19] MEDS ORDERED: HYDROmorphone 0.5 MG/0.5 ML SYRINGE IVP STA (13:22)
== END 2024-10-19 13:56 | disposition left against medical advice (07) ==
LOC: EC 09:58
DX: N13.2 Hydronephrosis with renal and ureteral calculous obstruction (principal); Z87.891 Personal history of nicotine dependence; Z53.29 Procedure and treatment not carried out because of patient's decision for other reasons
CPT/HCPCS: 99284; 96374; 96361; 36415; 80053; 83605; 85025; 81001; 87086; 74018; 76770; J1885; 96375